=== PATIENT | female | born 1955 | race Caucasian/White ===

== ENCOUNTER 2022-05-07 09:35 | Outpatient (REF) | payer BC, SELFPAY ==
[2022-05-07 09:57] LABS: MANUAL DIFF FLAG NO
[2022-05-07 10:13] LABS: Basophils Percent Auto 0.8 % (0-2); Eosinophils Absolute Auto 0.1 X10*3/uL (0.0-0.4); Eosinophils Percent Auto 2.6 % (0-4); Hematocrit 39.5 % (37.0-47.0); Hemoglobin 13.2 g/dl (12.0-16.0); Imm Gran Abs Auto 0.01 X10*3/uL (0.00-0.03); Imm Gran Pct Auto 0.2 % (0.0-0.4); Lymphocytes Absolute Auto 2.2 X10*3/uL (1.2-4.9); Lymphocytes Percent Auto 43.3 % (20-40); Mean Corpuscular HGB Conc 33.4 g/dl (31.0-35.0); Mean Corpuscular Hemoglobin 32.5 pg (27.0-33.0); Mean Corpuscular Volume 97.3 fL (80.0-98.0); Mean Platelet Volume 10.7 fL (9.4-12.3); Monocytes Absolute Auto 0.4 X10*3/uL (0.1-1.2); Monocytes Percent Auto 8.3 % (2-11); Neutrophils Absolute Auto 2.3 x10*3/uL (2.0-8.3); Neutrophils Percent Auto 44.8 % (45-73); Platelet Count 233 X10*3/uL (160-400); Red Blood Count 4.06 X10*6/uL (4.20-5.50); Red Cell Distribution Width 11.4 % (11.0-16.0)
[2022-05-07 10:54] LABS: Appearance Urine Clear; Color Urine Yellow; Glucose Urine UA Negative (Negative); Leukocyte Esterase Urine Trace (Negative); Nitrite Urine Negative (Negative); UMIC TRIGGER UACC YES; Urine Blood Negative (Negative); Urine Ketones Negative (Negative); Urine Protein Negative (Neg-Trace)
[2022-05-07 11:03] LABS: Bacteria Urine None Seen (None Seen); Hyaline Casts Urine 0-2 /LPF (0-2); RBC Urine 0-2 /HPF (0-2); Squamous Epithelial Cell Urine 0-2 /HPF (0-2); WBC Urine 0-5 /HPF (0-5)
[2022-05-07 12:50] LABS: Alanine Aminotransferase 15 U/L (0-31); Albumin Level 4.3 g/dL (3.5-5.0); Alkaline Phosphatase 70 U/L (39-117); Anion Gap 11 (12-20); Aspartate Amino Transferase 17 U/L (5-31); Bilirubin Total 0.3 mg/dL (0.0-1.0); Blood Urea Nitrogen 16 mg/dL (9-16); Calcium 9.8 mg/dL (8.4-10.2); Carbon Dioxide 29 mmol/L (22-29); Chloride 105 mmol/L (96-108); Cholesterol 189 mg/dL; Estimated Glomerular Filt Rate > 60; Ferritin 41 ng/mL (10-250); Glucose Fasting 101 mg/dL (60-99); HDL Cholesterol 64 mg/dL; Iron 75 mcg/dL (30-160); LDL Cholesterol Calculated 106 mg/dl; Percent Iron Saturation 25 % (15-50); Sodium 140 mmol/L (135-145); TSH reflex Free T4 1.59 uIU/mL (0.32-4.0); Total Iron Binding Capacity 296 mcg/dL (228-428); Total Protein 7.2 g/dL (6.5-8.0); Triglycerides 95 mg/dL; Unsaturated Iron Binding 221 ug/dL; Vitamin D 25-OH Total 67.8 ng/mL (>30)
== END 2022-05-07 09:36 | disposition home or self-care (01) ==
LOC: HO.LAB 09:35
PROVIDERS: PCP Internal Medicine; Visit Provider Internal Medicine
DX: Z00.00 Encounter for general adult medical examination without abnormal findings (principal); D64.9 Anemia, unspecified; E78.00 Pure hypercholesterolemia, unspecified; E55.9 Vitamin D deficiency, unspecified; R30.0 Dysuria
CPT/HCPCS: 36415; 80053; 80061; 81001; 82306; 82728; 83540; 84443; 85025

== ENCOUNTER 2023-05-13 08:57 | Outpatient (AMB) | payer BC, SELFPAY ==
[2023-05-13 09:03] VITALS: BP 130/64; PULSE 67; O2SAT 98; BMI 28.5
--- NOTE | 2023-05-13 09:03 | A.OFFPC_ITS ---
Vital Signs 05/13/23 09:03 Height 5 ft 3 in Weight 161 lb BMI 28.5 BP 130/64 Blood Pressure Location Lt brachial Position Sitting Pulse 67 Pulse Source Pulse Oximeter Pulse Oximetry (%) 98 Oxygen Delivery Method Room Air Intake Visit Reasons: Annual Exam Non Destructive Testing Supervisor Required: No Accompanied by: Self / Same As Patient Allergies No Known Allergies Allergy (Verified 05/13/23 09:15) Medication List - Last Reconciled 05/13/23 by Ant Garza MD cyanocobalamin (vitamin B-12) 1,000 mcg PO DAILY ferrous sulfate 325 mg PO BID multivitamin 1 tab PO DAILY Tobacco use date assessed: 05/13/23 Fall risk assessment: No Falls in past year Last assessed Fall Risk: 05/13/23 Dental Screening Dental Screen Date: 05/13/23 Did you have a dental visit in the last 12 months?: Yes Did you have a dental problem in the last 6 months where you did not have access to dental care?: No Was dental information given to patient?: Patient has dentist HPI Annual Exam HPI Details Patient comes in today for her annual physical examination States that she feels okay but reports experiencing fatigue often lately Has also been craving ice chips for the past few weeks States that she still takes her iron supplements daily She denies any headaches or dizziness Denies any chest pains, no SOB No nausea/vomiting, no abdominal pain No change in bowel habits noted - still has constipation at times due to her iron supplements and takes OTC Sennokot PRN Denies any acute urinary symptoms Was seen again by oncology for follow up last month for her breast cancer (is still on the Compass trial) and was advised that she is doing well with no evidence of recurrence of her cancer Patient had her colonoscopy done (together with EGD) a couple of years ago (2020) and was advised that her next colonoscopy will be in 10 years (2030) Also had her BMD last done in 05/2020 and she is now due for repeat scan She does NOT need a mammogram as she's had bilateral mastectomy done [facility] Medical History Osteopenia Overweight (BMI 25.0-29.9) Elevated blood pressure reading Breast cancer, right breast Surgical History H/O breast implant H/O left mastectomy History of section Family History Other Family history non-contributory Social History (Updated 05/13/23 @ 09:48 by Ant Garza MD) Housing: House Alcohol intake: former Patient Tobacco Use Status: Former Tobacco user Tobacco use type: Cigarette e-Cigarette/Vaping Use: Never Used Second Hand Smoke Exposure: Yes service: No Current occupational status: employed Current occupation: works at [employer]; is also a [employer] Cognitive needs: No Hearing needs: No Vision needs: No Questionnaire PHQ-9 Over the last 2 weeks, how often have you been bothered by any of the following problems? 1. Little interest or pleasure in doing things: not at all 2. Feeling down, depressed, or hopeless: several days 3. Trouble falling or staying asleep, or sleeping too much: not at all 4. Feeling tired or having little energy: not at all 5. Poor appetite or overeating: not at all 6. Feeling bad about yourself - or that you are a failure or have let yourself or your family down: not at all 7. Trouble concentrating on things, such as reading the newspaper or watching television: not at all 8. Moving or speaking so slowly that other people could have noticed. Or the opposite - being so fidgety or restless that you have been moving around a lot more than usual: not at all 9. Thoughts that you would be better off or of hurting yourself in some way: not at all Total score: 1 Depression Screening Interpretation: Positive (mild; discussed measures she can do to help; advised to call if depression gets worse) Depression Screening Follow-up: Existing condition and Declines treatment Depression Screening Done: Yes [id number] - PHQ-9 Billing: Yes Source: Developed by Drs. aDljit Church, Helena Ji, Patel Hudson and colleagues, with an educational shelly from [employer]. Thrive Questionnaire Date Thrive assessed: 05/13/23 I am a: Patient What is your living situation today?: I have a steady place to live Within the past 12 months, did the food you bought not last and you didn't have the money to get more?: Never true Within the past 12 months, did you worry whether your food would run out before you got money to buy more?: Never true Do you have trouble paying for medicines?: No Do you have trouble getting transportation to medical appointments?: No Do you have trouble paying your heating and electricity bill?: No Do you have trouble taking care of your child, family member or friend?: No Do you have trouble with day-to-day activities such as bathing, preparing meals, shopping, managing finances, etc.?: No Are you currently unemployed and looking for a job?: No Are you interested in more education?: No Please select the resources that you would like help with: None Currently or been in a relationship where the following occur: no concerns reported AUDIT C Alcohol Use Questionnaire (AUDIT-C) 1. How often do you have a drink containing alcohol?: Never 3. How often do you have six or more drinks on one occasion?: Never Total Score: 0 Score Reviewed/Action Taken: Yes AGUSTINA-7 AMB Questionnaire AGUSTINA-7 Date AGUSTINA - 7 assessed: 05/13/23 Feeling nervous, anxious, or on edge: 1 = Several days Not being able to stop or control worryin = Not at all Worrying too much about different things: 0 = Not at all Trouble relaxin = Not at all Being so restless that it is hard to sit still: 0 = Not at all Becoming easily annoyed or irritable: 0 = Not at all Feeling afraid as if something awful might happen: 0 = Not at all Total AGUSTINA-7 score (0-4 normal; 5-9 mild; 10-14 moderate; 15-21 severe): 1 Source: Developed by Drs. Daljit Church, Helena Ji, Patel Hudson and colleagues, with an educational shelly from [employer]. Review of Systems Const Denies chills, Reports difficulty sleeping (at times), Reports fatigue (lately), Denies fever(s), Denies headache(s), Denies malaise and Denies weakness Eyes Denies blurry vision, Denies change in vision, Denies irritation and Denies itchy eyes ENT Denies dysphagia, Denies dizziness, Denies otalgia, Denies headache(s), Denies nasal congestion, Denies neck pain, Denies odynophagia and Denies sore throat Card Denies chest pain, Denies rapid heart rate, Denies irregular heart rhythm, Denies palpitations and Denies dyspnea Resp Denies chest congestion, Denies cough, Denies dyspnea and Denies wheezing GI Denies abdominal pain, Denies bloating, Denies change in bowel habits, Reports constipation (due to iron supplements - has to take OTC Senna PRN), Denies dysphagia, Denies heartburn, Denies diarrhea, Denies nausea, Denies odynophagia and Denies vomiting Denies hematuria, Denies urinary frequency, Denies dysuria, Denies urinary incontinence and Denies urinary urgency Musc Denies back pain, Denies arthralgias, Denies joint swelling, Denies muscle weakness and Denies neck pain Skin/Breast Details: S/P bilateral mastectomy Denies lesions and Denies rash Neuro Denies dizziness, Denies headache(s), Denies paresthesias and Denies weakness Psych Denies anxiety and Reports depression (mild) Endo Reports fatigue (lately) and Denies palpitations Waylon/Lymph Denies easy bruising Aller/Immun Denies itchy eyes and Denies wheezing Physical exam (Primary Care) Vital Signs: Last Vital Signs Pulse 67 05/13/23 09:03 BP 130/64 05/13/23 09:03 Pulse Ox 98 05/13/23 09:03 Oxygen Delivery Method Room Air 05/13/23 09:03 BMI result Body Mass Index 28.5 Tobacco/Smoking Status: Tobacco use Status Tobacco use date assessed 05/13/23 05/13/23 09:11 Patient Tobacco Use Status Former Tobacco user 05/13/23 09:11 Tobacco use type Cigarette 05/13/23 09:11 e-Cigarette/Vaping Use Never Used 05/13/23 09:11 PHQ-9: PHQ-9 Score PHQ-9: Total score 1 05/13/23 09:11 Depression Screening Interpretation: Positive (mild; discussed measures she can do to help; advised to call if depression gets worse) Depression Screening Follow-up: Existing condition and Declines treatment Thrive Assessment: Date of Thrive Assessment Date Thrive assessed 05/13/23 05/13/23 09:11 Currently or been in a relationship where the following occur: no concerns reported Const General: no acute distress, alert and awake Orientation/consciousness: patient oriented x3 HENMT Head: Yes normocephalic and Yes atraumatic Ears: external ears normal, TM's normal bilaterally and EAC's normal General nose exam: No nasal discharge present Face and sinus: Yes normal facial exam and Yes sinuses nontender Teeth and gingiva: dentition normal Throat: Yes posterior oropharynx normal and Yes tonsils normal (no TP congestion) Eyes Eyelids: Yes eyelids normal Conjunctivae: conjunctivae normal Pupils: Equal, round and reactive pupils present EOM: EOMs intact bilaterally Neck Neck: Yes no lymphadenopathy and Yes supple Thyroid: Thyroid normal Resp Auscultation: clear to auscultation bilaterally, no rales and no wheezes Cardio Rate: regular rate Rhythm: regular rhythm Heart sounds: no murmurs GI Palpation (GI): Soft to palpation, nontender and No hepatosplenomegaly present Auscultation: normal bowel sounds General: Yes no CVA tenderness Back/Spine/Pelvis Back: no CVA tenderness Thoracic/Lumbar Spine: thoracic and lumbar spine normal to inspection Skin Lesions: no lesions Rashes: no rashes Neuro General: patient oriented x3, moves all extremities, no focal motor deficits and CN's II-XI intact bilaterally Cranial nerves: Yes Equal, round and reactive pupils present Cognition (Neuro): normal cognition Gait exam (Neuro): Normal gait present Extrem General: Yes no clubbing, cyanosis or edema Assessment and Plan Assessment & Plan (1) Annual physical exam: Code(s): Z00.00 - Encounter for general adult medical examination without abnormal findings Plan: Check labs She is up-to-date with all of her cancer screenings (2) Breast cancer, right breast: Comment: Had clinical T2N0, 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, 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-2 Lalitha positive - completed her neoadjuvant chemotherapy consisting of Pertuzumab, Trastuzumab and Paclitaxel (13 weeks total) - part of the COMPASS trial S/P bilateral mastectomy, preventive on the left side Final diagnosis: ypT0 (CR) ypN0 invasive ductal carcinoma Code(s): C50.911 - Malignant neoplasm of unspecified site of right female breast Qualifiers: Breast location: unspecified site of breast Estrogen receptor status: negative Patient sex: female Qualified Code(s): C50.911 - Malignant neoplasm of unspecified site of right female breast; Z17.1 - Estrogen receptor negative status [ER-] Plan: Completed neoadjuvant chemotherapy (including IV PACLitaxel) in July 2021 (is on the Compass trial) S/P bilateral mastectomy (preventive on the left side) and reconstructive plastic surgery to bilateral breast - will be seeing plastic surgery for follow up on her results Follow up with oncology as scheduled for continuing surveillance (3) Osteopenia: Code(s): M85.80 - Other specified disorders of bone density and structure, unspecified site Qualifiers: Osteopenia location: multiple sites Qualified Code(s): M85.89 - Other specified disorders of bone density and structure, multiple sites Plan: BMD last done in May 2020 - (+) osteopenia Reinforced daily Vitamin D and Calcium intake as well as regular exercise and physical activity Will recheck BMD for follow up - is now due for repeat BMD (4) Anemia: Code(s): D64.9 - Anemia, unspecified Qualifiers: Anemia type: unspecified type Qualified Code(s): D64.9 - Anemia, unspecified Plan: Continue Ferrous Sulfate 325 mg BID Will recheck her CBC for follow up Discussed that her recent fatigue may be due to a few possible reasons, with anemia being one of them, especially with her recent craving for ice chips although her iron supplements makes it unlikely We will also be checking her thyroid for further evaluation (5) Overweight (BMI 25.0-29.9): Code(s): E66.3 - Overweight Plan: Reinforced diet/exercise as tolerated/lose weight Plan To return in 1 year for her next annual physical examination Orders: Orders Complete Blood Count Auto Diff Today D64.9 - Anemia, unspecified, Z00.00 - En counter for general adult medical examination without abnormal findings Comprehensive [place]. Panel Fast Today D64.9 - Anemia, unspecified, E78.00 - Pure hypercholesterolemia, unspecified, Z00.00 - Encounter for general adult medical examination without abnormal findings Lipid Panel Today D64.9 - Anemia, unspecified, E78.00 - Pure hypercholestero lemia, unspecified, Z00.00 - Encounter for general adult medical examination without abnormal findings TSH reflex Free T4 Today D64.9 - Anemia, unspecified, E78.00 - Pure hy percholesterolemia, unspecified, Z00.00 - Encounter for general adult medical examination without abnormal findings UA CC w/rflx Micro + Cult Today D64.9 - Anemia, unspecified, R30.0 - Dysuria, Z00.00 - Encounter for general adult medical examination without abnormal findings Vitamin D 25-OH Total Today D64.9 - Anemia, unspecified, E55.9 - Vitamin D deficiency, unspecified, Z00.00 - Encounter for general adult medical examination without abnormal findings XR DEXA axial skeleton Today M85.80 - Other specified disorders of bone density and structure, unspecified site, Z78.0 - Asymptomatic menopausal state Vitamin B12 and Folate Today D64.9 - Anemia, unspecified, E53.8 - Deficiency of other specified B group vitamins, Z00.00 - Encounter for general adult medical examination without abnormal findings IRON PROFILE Today D50.9 - Iron deficiency anemia, unspecified, D64.9 - Anemia, unspecified, Z00.00 - Encounter for general adult medical examination without abnormal findings Coding Level of Care Code Est Pt Prev Care >65y(28912) Diagnoses Annual physical exam Z00.00 Malignant neoplasm of right breast in female, estrogen receptor negative, unspecified site of breast C50.911; Z17.1 Breast location: unspecified site of breast Estrogen receptor status: negative Patient sex: female Osteopenia of multiple sites M85.89 Osteopenia location: multiple sites Anemia, unspecified type D64.9 Anemia type: unspecified type Overweight (BMI 25.0-29.9) E66.3
== END 2023-05-13 09:47 | disposition home or self-care (01) ==
PROVIDERS: Visit Provider Internal Medicine
DX: Z00.00 Encounter for general adult medical examination without abnormal findings (principal); C50.911 Malignant neoplasm of unspecified site of right female breast; Z17.1 Estrogen receptor negative status [ER-]; M85.89 Other specified disorders of bone density and structure, multiple sites; D64.9 Anemia, unspecified; E66.3 Overweight
CPT/HCPCS: 99397

== ENCOUNTER 2023-05-13 09:51 | Outpatient (REF) | payer BC, SELFPAY ==
[2023-05-13 10:06] LABS: MANUAL DIFF FLAG NO
[2023-05-13 10:53] LABS: Basophils Percent Auto 0.6 % (0-2); Eosinophils Absolute Auto 0.1 X10*3/uL (0.0-0.4); Eosinophils Percent Auto 1.8 % (0-4); Hematocrit 38.1 % (37.0-47.0); Hemoglobin 12.7 g/dl (12.0-16.0); Imm Gran Abs Auto 0.01 X10*3/uL (0.00-0.03); Imm Gran Pct Auto 0.2 % (0.0-0.4); Lymphocytes Absolute Auto 1.8 X10*3/uL (1.2-4.9); Lymphocytes Percent Auto 36.1 % (20-40); Mean Corpuscular HGB Conc 33.3 g/dl (31.0-35.0); Mean Corpuscular Hemoglobin 31.9 pg (27.0-33.0); Mean Corpuscular Volume 95.7 fL (80.0-98.0); Mean Platelet Volume 11.4 fL (9.4-12.3); Monocytes Absolute Auto 0.4 X10*3/uL (0.1-1.2); Monocytes Percent Auto 7.3 % (2-11); Neutrophils Absolute Auto 2.7 x10*3/uL (2.0-8.3); Platelet Count 202 X10*3/uL (160-400); Red Blood Count 3.98 X10*6/uL (4.20-5.50); Red Cell Distribution Width 11.6 % (11.0-16.0)
[2023-05-13 11:19] LABS: Appearance Urine Clear; Color Urine Yellow; Glucose Urine UA Negative (Negative); Leukocyte Esterase Urine Trace (Negative); Nitrite Urine Negative (Negative); UMIC TRIGGER UACC YES; Urine Blood Negative (Negative); Urine Ketones Negative (Negative); Urine Protein Negative (Neg-Trace)
[2023-05-13 11:23] LABS: Bacteria Urine None Seen (None Seen); Hyaline Casts Urine 0-2 /LPF (0-2); RBC Urine 0-2 /HPF (0-2); Squamous Epithelial Cell Urine 0-2 /HPF (0-2); WBC Urine 0-5 /HPF (0-5)
[2023-05-13 11:30] LABS: Alanine Aminotransferase 27 U/L (0-31); Albumin Level 4.2 g/dL (3.5-5.0); Alkaline Phosphatase 77 U/L (39-117); Anion Gap 12 (12-20); Aspartate Amino Transferase 19 U/L (5-31); Bilirubin Total 0.4 mg/dL (0.0-1.0); Blood Urea Nitrogen 11 mg/dL (9-16); Calcium 9.3 mg/dL (8.4-10.2); Carbon Dioxide 27 mmol/L (22-29); Chloride 107 mmol/L (96-108); Cholesterol 176 mg/dL (<200); Estimated Glomerular Filt Rate > 60; Glucose Fasting 97 mg/dL (60-99); HDL Cholesterol 61 mg/dL (>40); Iron 187 mcg/dL (30-160); LDL Cholesterol Calculated 100 mg/dL (<100); Percent Iron Saturation 72 % (15-50); Sodium 142 mmol/L (135-145); Total Iron Binding Capacity 258 mcg/dL (228-428); Total Protein 7.3 g/dL (6.5-8.0); Triglycerides 79 mg/dL (<150); Unsaturated Iron Binding 71 ug/dL
[2023-05-13 11:34] LABS: TSH reflex Free T4 1.66 uIU/mL (0.32-4.0); Vitamin D 25-OH Total 51.2 ng/mL (>30)
[2023-05-13 11:45] LABS: Folate 17.9 ng/mL (> or = 4.0); Vitamin B12 1366 pg/mL (200-900)
== END 2023-05-13 09:52 | disposition home or self-care (01) ==
LOC: HO.LAB 09:51
PROVIDERS: PCP Internal Medicine; Visit Provider Internal Medicine
DX: Z00.00 Encounter for general adult medical examination without abnormal findings (principal); E78.00 Pure hypercholesterolemia, unspecified; E55.9 Vitamin D deficiency, unspecified; E53.8 Deficiency of other specified B group vitamins; D50.9 Iron deficiency anemia, unspecified
CPT/HCPCS: 36415; 80053; 80061; 81001; 82306; 82607; 82746; 83540; 84443; 85025

== ENCOUNTER 2023-06-08 14:08 | Outpatient (REF) | payer BC, SELFPAY ==
--- NOTE | ~2023-06-08 | MM_ITS ---
EXAMINATION: BONE DENSITOMETRY CLINICAL INDICATION: Asymptomatic menopausal state. COMPARISON: This is the patient's baseline examination. TECHNIQUE: Using a [employer] DXA System (software version: 13.1) manufactured by [employer], dual-energy x-ray absorptiometry was performed of the lumbar spine and left hip. The images are of good technical quality. Summary results are attached. FINDINGS: LEFT FEMUR, NECK: BMD 0.723 g/cm2, Z-score -1.0, T-score -2.3, osteopenia. LEFT FEMUR, TOTAL: BMD 0.746 g/cm2, Z-score -1.1, T-score -2.1, osteopenia. AP SPINE L1-L4: BMD 0.858 g/cm2, Z-score -1.4, T-score -2.7, osteoporosis. IDENTIFIED RISK FACTORS: Early menopause, secondary osteoporosis, height loss, history of fracture (adult). HISTORY OF FRACTURE: Wrist. MEDICATIONS: Calcium supplements or multivitamin, vitamin D. MM/XR DEXA axial skeleton IMPRESSION: 1. DIAGNOSIS: Severe osteoporosis based on the lowest T-score value of -2.7 in the lumbar spine and history of fracture applying World Health Organization criteria. 2. 10-YEAR FRACTURE RISK PREDICTION, FRAX: According to the guidelines, FRAX calculation should only be performed on patients in the osteopenia bone density category. Therefore, FRAX was not performed on this patient. 3. Treatment Recommendations: NOF guidelines recommend consideration for treatment in postmenopausal women and men age 50 and older presenting with the following: -A hip or vertebral (clinical or morphometric) fracture. -T-score less than or equal to -2.5 at the femoral neck or spine after appropriate evaluation to exclude secondary causes. -Low bone mass at the hip or spine and a 10-year fracture probability by FRAX of greater than or equal to 3% for hip fracture or greater than or equal to 20% for major osteoporotic fracture based on the [place] adapted WHO algorithm. 4. Other Recommendations: All treatment decisions require clinical judgment and consideration of individual patient factors, including patient preferences, comorbidities, previous drug use, risk factors not captured in the FRAX model (e.g. frailty, falls, vitamin D deficiency, increased bone turnover, interval significant decline in bone density) and possible under or overestimation of fracture risk by FRAX. Additional medical evaluation for secondary cause of low bone mineral density may be appropriate. FUTURE SCAN RECOMMENDATION: People with diagnosed cases of osteoporosis or at high risk for fracture should have regular bone mineral density tests. For patients eligible for Medicare, routine testing is allowed once every 2 years. The testing frequency can be increased to one year for patients who have rapidly progressing disease, those who are receiving or discontinuing medical therapy to restore bone mass, or have additional risk factors.
== END 2023-06-08 14:09 | disposition home or self-care (01) ==
LOC: HO.MAMMO 14:08
PROVIDERS: PCP Internal Medicine; Visit Provider Internal Medicine
DX: Z13.820 Encounter for screening for osteoporosis (principal); Z78.0 Asymptomatic menopausal state; M85.80 Other specified disorders of bone density and structure, unspecified site
CPT/HCPCS: 77080

== ENCOUNTER 2024-05-16 08:57 | Outpatient (AMB) | payer BC, SELFPAY ==
[2024-05-16 09:10] VITALS: BP 116/74; BMI 27.3
--- NOTE | 2024-05-16 09:10 | MHC.PC.OV ---
Vital Signs 05/16/24 09:10 Height 5 ft 3 in Weight 154 lb 4 oz BMI 27.3 BP 116/74 Blood Pressure Location Lt brachial Position Sitting Pulse Source Pulse Oximeter Oxygen Delivery Method Room Air Intake Visit Reasons: pe Admissions Nurse Required: No Accompanied by: Self / Same As Patient Allergies No Known Allergies Allergy (Verified 05/16/24 09:46) Medication List - Last Reconciled 05/16/24 by Ant Garza MD cyanocobalamin (vitamin B-12) 1,000 mcg PO DAILY ferrous sulfate 325 mg PO BID multivitamin 1 tab PO DAILY Tobacco use date assessed: 05/16/24 Fall risk assessment: No Falls in past year Last assessed Fall Risk: 05/16/24 Dental Screening Dental Screen Date: 05/16/24 Did you have a dental visit in the last 12 months?: Yes Did you have a dental problem in the last 6 months where you did not have access to dental care?: No Was dental information given to patient?: Patient has dentist HPI pe HPI Details Patient comes in today for her annual physical examination States that she feels okay She denies any headaches or dizziness Denies any chest pains, no SOB No nausea/vomiting, no abdominal pain No change in bowel habits noted - still has constipation at times due to her iron supplements and she takes OTC Sennokot PRN to help relieve her symptoms She denies any acute urinary symptoms She had her screening colonoscopy done back in [address] Vanegas, which came out normal, and she was advised that her next colonoscopy will be due in 10 years (2030) She has had bilateral mastectomy done so she no longer needs to have annual mammographies She had her annual gynecology exam and pap smear last done in April 2022 and states that she will reach out to her photogrammetric tech to schedule her next appointment MEGAN She had her baseline bone density done back in May 2023 and would like to know how she did on her scan [facility] Medical History (Updated 05/16/24 @ 10:03 by Ant Garza MD) Osteoporosis Overweight (BMI 25.0-29.9) Elevated blood pressure reading Breast cancer, right breast Surgical History (Updated 05/16/24 @ 10:06 by Ant Garza MD) History of colonoscopy History of bilateral mastectomy H/O breast implant History of section Family History Other Family history non-contributory Social History Housing: House Alcohol intake: former Patient Tobacco Use Status: Former Tobacco user Tobacco use type: Cigarette e-Cigarette/Vaping Use: Never Used Second Hand Smoke Exposure: Yes service: No Current occupational status: employed 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 1. Little interest or pleasure in doing things: not at all 2. Feeling down, depressed, or hopeless: not at all 3. Trouble falling or staying asleep, or sleeping too much: not at all 4. Feeling tired or having little energy: not at all 5. Poor appetite or overeating: not at all 6. Feeling bad about yourself - or that you are a failure or have let yourself or your family down: not at all 7. Trouble concentrating on things, such as reading the newspaper or watching television: not at all 8. Moving or speaking so slowly that other people could have noticed. Or the opposite - being so fidgety or restless that you have been moving around a lot more than usual: not at all 9. Thoughts that you would be better off or of hurting yourself in some way: not at all Total score: 0 Depression Screening Interpretation: Negative Depression Screening Done: Yes 55551 - PHQ-9 Billing: Yes Source: Developed by Drs. Daljit Church, Helena Ji, Patel Hudson and colleagues, with an educational shelly from [employer]. Thrive Questionnaire Date Thrive assessed: 05/16/24 I am a: Patient What is your living situation today?: I have a steady place to live Within the past 12 months, did the food you bought not last and you didn't have the money to get more?: Never true Within the past 12 months, did you worry whether your food would run out before you got money to buy more?: Never true Do you have trouble paying for medicines?: No Do you have trouble getting transportation to medical appointments?: No Do you have trouble paying your heating and electricity bill?: No Do you have trouble taking care of your child, family member or friend?: No Do you have trouble with day-to-day activities such as bathing, preparing meals, shopping, managing finances, etc.?: No Are you currently unemployed and looking for a job?: No Are you interested in more education?: No Please select the resources that you would like help with: None Currently or been in a relationship where the following occur: No concerns reported THRIVE Score: 0 AUDIT C Alcohol Use Questionnaire (AUDIT-C) 1. How often do you have a drink containing alcohol?: Never 3. How often do you have six or more drinks on one occasion?: Never Total Score: 0 Score Reviewed/Action Taken: Yes AGUSTINA-7 AMB Questionnaire AGUSTINA-7 Date AGUSTINA - 7 assessed: 05/16/24 Feeling nervous, anxious, or on edge: 0 = Not at all Not being able to stop or control worryin = Not at all Worrying too much about different things: 0 = Not at all Trouble relaxin = Not at all Being so restless that it is hard to sit still: 0 = Not at all Becoming easily annoyed or irritable: 0 = Not at all Feeling afraid as if something awful might happen: 0 = Not at all Total AGUSTINA-7 score (0-4 normal; 5-9 mild; 10-14 moderate; 15-21 severe): 0 Source: Developed by Drs. Daljit Church, Helena Ji, Patel Hudson and colleagues, with an educational shelly from [employer]. Review of Systems Const Denies chills, Denies fatigue, Denies fever(s), Denies headache(s) and Denies malaise Eyes Denies blurry vision, Denies change in vision, Denies irritation and Denies itchy eyes ENT Denies dysphagia, Denies dizziness, Denies otalgia, Denies headache(s), Denies nasal congestion, Denies neck pain, Denies odynophagia, Denies sinus pain and Denies sore throat Card Denies chest pain, Denies rapid heart rate, Denies irregular heart rhythm, Denies palpitations and Denies dyspnea Resp Denies chest congestion, Denies cough, Denies dyspnea and Denies wheezing GI Denies abdominal pain, Denies bloating, Denies constipation, Denies dysphagia, Denies heartburn, Denies diarrhea, Denies nausea, Denies odynophagia and Denies vomiting Denies hematuria, Denies urinary frequency, Denies dysuria, Denies urinary incontinence and Denies urinary urgency Musc Denies back pain, Denies arthralgias, Denies joint swelling, Denies muscle weakness and Denies neck pain Skin/Breast Denies breast pain, Denies breast mass, Denies change in pigmentation, Denies lesions, Denies rash and Denies unusual bruising Neuro Denies dizziness, Denies headache(s) and Denies paresthesias Psych Denies anxiety and Denies depression Endo Denies fatigue and Denies palpitations [place]/Lymph Denies easy bruising Aller/Immun Denies itchy eyes and Denies wheezing Physical exam (Primary Care) Vital Signs: Last Vital Signs BP 116/74 05/16/24 09:10 Oxygen Delivery Method Room Air 05/16/24 09:10 BMI result Body Mass Index 27.3 Tobacco/Smoking Status: Tobacco use Status Tobacco use date assessed 05/16/24 05/16/24 09:16 Patient Tobacco Use Status Former Tobacco user 05/16/24 09:16 Tobacco use type Cigarette 05/16/24 09:16 e-Cigarette/Vaping Use Never Used 05/16/24 09:16 PHQ-9: PHQ-9 Score PHQ-9: Total score 0 05/16/24 15:28 Depression Screening Interpretation: Negative Thrive Assessment: Date of Thrive Assessment Date Thrive assessed 05/16/24 05/16/24 09:16 Currently or been in a relationship where the following occur: No concerns reported Const General: no acute distress, alert and awake Orientation/consciousness: patient oriented x3 HENMT Head: Yes normocephalic and Yes atraumatic Ears: external ears normal, TM's normal bilaterally and EAC's normal General nose exam: No nasal discharge present Face and sinus: Yes normal facial exam and Yes sinuses nontender Teeth and gingiva: dentition normal Throat: Yes posterior oropharynx normal and Yes tonsils normal (no TP congestion) Eyes Eyelids: Yes eyelids normal Conjunctivae: conjunctivae normal Pupils: Equal, round and reactive pupils present EOM: EOMs intact bilaterally Neck Neck: Yes supple and No lymphadenopathy Thyroid: Thyroid normal Resp Auscultation: clear to auscultation bilaterally, no rales and no wheezes Cardio Rate: regular rate Rhythm: regular rhythm Heart sounds: no murmurs GI Palpation (GI): Soft to palpation, nontender and No hepatosplenomegaly present Auscultation: normal bowel sounds General: Yes no CVA tenderness Back/Spine/Pelvis Back: no CVA tenderness Thoracic/Lumbar Spine: thoracic and lumbar spine normal to inspection Skin Lesions: no lesions Rashes: no rashes Neuro General: patient oriented x3, moves all extremities, no focal motor deficits and CN's II-XI intact bilaterally Cranial nerves: Yes Equal, round and reactive pupils present Cognition (Neuro): normal cognition Gait exam (Neuro): Normal gait present Extrem General: Yes no clubbing, cyanosis or edema Coding Level of Care Code Est Pt Prev Care >65y(69936) Diagnoses Annual physical exam Z00.00 Osteoporosis without current pathological fracture, unspecified osteoporosis type M81.0 Osteoporosis type: unspecified Presence of current pathological fracture: without current pathological fracture Malignant neoplasm of right breast in female, estrogen receptor negative, unspecified site of breast C50.911; Z17.1 Breast location: unspecified site of breast Estrogen receptor status: negative Patient sex: female Anemia, unspecified type D64.9 Anemia type: unspecified type Overweight (BMI 25.0-29.9) E66.3 Additional Codes PHQ-9 - 50919 - PHQ-9 Billing: Yes ([id number]) Assessment & Plan Assessment & Plan (1) Annual physical exam: Code(s): Z00.00 - Encounter for general adult medical examination without abnormal findings Category: Medical Plan: Check labs She is up-to-date with her cancer screenings except for her annual gynecology exam and pap smear - she goes to her photogrammetric tech at [facility] and will reach out to them to schedule her appointment MEGAN She no longer has to go for annual mamography as she's had bilateral mastectomy done She is not due for repeat colonoscopy until 2030 She had her BMD done back in May 2023 (2) Osteoporosis: Code(s): M81.0 - Age-related osteoporosis without current pathological fracture Category: Medical Qualifiers: Osteoporosis type: unspecified Presence of current pathological fracture: without current pathological fracture Qualified Code(s): M81.0 - Age-related osteoporosis without current pathological fracture Plan: Her baseline BMD done in May 2023 revealed severe osteoporosis based on the lowest T-score value of -2.7 in the lumbar spine and history of fracture applying World Health Organization criteria Will check her urine NTx for further evaluation After discussion with patient, will go ahead and start her on Alendronate 70 mg Q week as instructed She is also advised to start taking OTC Calcium of at least 1000 mg daily and Vitamin D3 2000 units QD Will continue to monitor her BMD every couple of years to track her progress (3) Breast cancer, right breast: Comment: Had clinical T2N0, 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, 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-2 Lalitha positive - completed her neoadjuvant chemotherapy consisting of Pertuzumab, Trastuzumab and Paclitaxel (13 weeks total) - part of the COMPASS trial S/P bilateral mastectomy, preventive on the left side Final diagnosis: ypT0 (CR) ypN0 invasive ductal carcinoma Code(s): C50.911 - Malignant neoplasm of unspecified site of right female breast Category: Medical Qualifiers: Breast location: unspecified site of breast Estrogen receptor status: negative Patient sex: female Qualified Code(s): C50.911 - Malignant neoplasm of unspecified site of right female breast; Z17.1 - Estrogen receptor negative status [ER-] Plan: Patient completed neoadjuvant chemotherapy (including IV PACLitaxel) in July 2021 (is on the Compass trial) S/P bilateral mastectomy (preventive on the left side) and reconstructive plastic surgery to bilateral breast Follow up with oncology as scheduled for continuing surveillance (4) Anemia: Code(s): D64.9 - Anemia, unspecified Category: Medical Qualifiers: Anemia type: unspecified type Qualified Code(s): D64.9 - Anemia, unspecified Plan: Continue Ferrous sulfate 325 mg BID Will recheck her CBC for follow up and continue to monitor her CBC regularly (5) Overweight (BMI 25.0-29.9): Code(s): E66.3 - Overweight Category: Medical Plan: Reinforced diet/exercise as tolerated/lose weight Plan Follow up in 6 months Orders: Orders Complete Blood Count Auto Diff 05/16/24 D64.9 - Anemia, unspecified, Z00.00 - Encounter for general adult medical examination without abnormal findings Vitamin B12 and Folate 05/16/24 E53.8 - Deficiency of other specified B group vitamins, Z00.00 - Encounter for general adult medical examination without abnormal findings Vitamin D 25-OH Total 05/16/24 E55.9 - Vitamin D deficiency, unspecified, Z00.00 - Encounter for general adult medical examination without abnormal findings Comprehensive [place]. Panel Fast 05/16/24 E78.00 - Pure hypercholesterolemia, unspecified, Z00.00 - Encounter for general adult medical examination without abnormal findings Lipid Panel 05/16/24 E78.00 - Pure hypercholesterolemia, unspecified, Z00.00 - Encounter for general adult medical examination without abnormal findings TSH reflex Free T4 05/16/24 E78.00 - Pure hypercholesterolemia, unspecified, Z00.00 - Encounter for general adult medical examination without abnormal findings UA CC w/rflx Micro + Cult 05/16/24 R30.0 - Dysuria, Z00.00 - Encounter for general adult medical examination without abnormal findings Collagen Crosslinks NTX 05/16/24 M81.0 - Age-related osteoporosis without current pathological fracture Medications: New alendronate To be taken first thing in the morning on an empty stomach with a full glass of water; patient has to stay upright for at least the next 30 minutes and should not eat or drink anything else for 30 to 60 minutes after taking the medication 70 mg PO QWEEK 3 months 13 tabs 1RF
== END 2024-05-16 09:59 | disposition home or self-care (01) ==
PROVIDERS: PCP Internal Medicine; Visit Provider Internal Medicine
DX: Z00.00 Encounter for general adult medical examination without abnormal findings (principal); M81.0 Age-related osteoporosis without current pathological fracture; C50.911 Malignant neoplasm of unspecified site of right female breast; Z17.1 Estrogen receptor negative status [ER-]; D64.9 Anemia, unspecified; E66.3 Overweight

== ENCOUNTER 2024-05-16 08:57 | Outpatient (REF) | payer BC, SELFPAY ==
[2024-05-16 10:24] LABS: MANUAL DIFF FLAG NO
[2024-05-16 10:51] LABS: Basophils Absolute Auto 0.1 X10*3/uL (0.0-0.2); Basophils Percent Auto 0.9 % (0-2); Eosinophils Absolute Auto 0.3 X10*3/uL (0.0-0.4); Eosinophils Percent Auto 5.9 % (0-4); Hematocrit 30.5 % (37.0-47.0); Hemoglobin 9.4 g/dl (12.0-16.0); Imm Gran Abs Auto 0.01 X10*3/uL (0.00-0.03); Imm Gran Pct Auto 0.2 % (0.0-0.4); Lymphocytes Absolute Auto 1.9 X10*3/uL (1.2-4.9); Lymphocytes Percent Auto 34.2 % (20-40); Mean Corpuscular HGB Conc 30.8 g/dl (31.0-35.0); Mean Corpuscular Hemoglobin 26.8 pg (27.0-33.0); Mean Corpuscular Volume 86.9 fL (80.0-98.0); Monocytes Absolute Auto 0.6 X10*3/uL (0.1-1.2); Monocytes Percent Auto 9.8 % (2-11); Neutrophils Absolute Auto 2.7 x10*3/uL (2.0-8.3); Platelet Count 283 X10*3/uL (160-400); Red Blood Count 3.51 X10*6/uL (4.20-5.50); Red Cell Distribution Width 13.3 % (11.0-16.0); White Blood Count 5.6 X10*3/uL (4.8-10.8)
[2024-05-16 11:03] LABS: Appearance Urine Cloudy; Color Urine Yellow; Glucose Urine UA Negative (Negative); Leukocyte Esterase Urine Trace (Negative); Nitrite Urine Negative (Negative); Specific Gravity - Urine >= 1.030 (1.005-1.025); UMIC TRIGGER UACC YES; Urine Blood Negative (Negative); Urine Ketones Trace mg/dL (Negative); Urine Protein Negative (Neg-Trace)
[2024-05-16 11:28] LABS: Alanine Aminotransferase 22 U/L (0-31); Alkaline Phosphatase 59 U/L (39-117); Anion Gap 10 (12-20); Aspartate Amino Transferase 25 U/L (5-31); Bilirubin Total 0.2 mg/dL (0.0-1.0); Blood Urea Nitrogen 14 mg/dL (9-16); Calcium 8.8 mg/dL (8.4-10.2); Carbon Dioxide 29 mmol/L (22-29); Chloride 108 mmol/L (96-108); Cholesterol 155 mg/dL (<200); Estimated Glomerular Filt Rate > 60; Glucose Fasting 101 mg/dL (60-99); HDL Cholesterol 65 mg/dL (>40); LDL Cholesterol Calculated 71 mg/dL (<100); Potassium 4.7 mmol/L (3.3-5.1); Sodium 142 mmol/L (135-145); Total Protein 7.3 g/dL (6.5-8.0); Triglycerides 97 mg/dL (<150)
[2024-05-16 11:48] LABS: TSH reflex Free T4 1.78 uIU/mL (0.32-4.0); Vitamin D 25-OH Total 61.1 ng/mL (>30)
[2024-05-16 12:03] LABS: Folate > 20.0 ng/mL (> or = 4.0); Vitamin B12 1690 pg/mL (200-900)
[2024-05-16 12:42] LABS: Bacteria Urine 1+ (None Seen); Hyaline Casts Urine 0-2 /LPF (0-2); RBC Urine 0-2 /HPF (0-2); WBC Urine 0-5 /HPF (0-5)
[2024-05-27 13:43] LABS: N-Telopeptide 55 (see note); NTXCreaRU 172 mg/dL (20-275)
== END 2024-05-16 08:58 | disposition home or self-care (01) ==
LOC: HO.LAB 08:57
PROVIDERS: PCP Internal Medicine; Visit Provider Internal Medicine
DX: Z00.00 Encounter for general adult medical examination without abnormal findings (principal); M81.0 Age-related osteoporosis without current pathological fracture; C50.911 Malignant neoplasm of unspecified site of right female breast; Z17.1 Estrogen receptor negative status [ER-]; D64.9 Anemia, unspecified; E66.3 Overweight; Z68.27 Body mass index [BMI] 27.0-27.9, adult; Z79.899 Other long term (current) drug therapy; Z90.13 Acquired absence of bilateral breasts and nipples; E53.8 Deficiency of other specified B group vitamins; E55.9 Vitamin D deficiency, unspecified; E78.00 Pure hypercholesterolemia, unspecified
CPT/HCPCS: 36415; 80053; 80061; 81001; 81003; 82306; 82523; 82607; 82746; 84443; 85025; 96127

== ENCOUNTER 2025-01-31 08:25 | Outpatient (REF) | payer BC, SELFPAY ==
[2025-01-31 09:22] LABS: MANUAL DIFF FLAG NO
[2025-01-31 10:27] LABS: Hematocrit 24.7 % (37.0-47.0); Imm Gran Abs Auto 0.01 X10*3/uL (0.00-0.03); Imm Gran Pct Auto 0.2 % (0.0-0.4); Lymphocytes Absolute Auto 1.5 X10*3/uL (1.2-4.9); Mean Corpuscular HGB Conc 27.1 g/dl (31.0-35.0); Mean Corpuscular Hemoglobin 20.6 pg (27.0-33.0); Mean Corpuscular Volume 75.8 fL (80.0-98.0); NRBC Abs Auto 0.000 X10*3/uL (0.0-0.012); NRBC Pct Auto 0.0 /100WBC (0.0-0.2); Platelet Count 276 X10*3/uL (160-400); Red Blood Count 3.26 X10*6/uL (4.20-5.50); White Blood Count 4.9 X10*3/uL (4.8-10.8)
[2025-01-31 10:36] LABS: Hemoglobin 6.7 g/dl (12.0-16.0)
[2025-01-31 11:14] LABS: Alanine Aminotransferase 20 U/L (0-31); Albumin Level 4.4 g/dL (3.5-5.0); Alkaline Phosphatase 45 U/L (39-117); Anion Gap 14 (12-20); Aspartate Amino Transferase 25 U/L (5-31); Blood Urea Nitrogen 15 mg/dL (9-16); Calcium 9.1 mg/dL (8.4-10.2); Carbon Dioxide 26 mmol/L (22-29); Chloride 109 mmol/L (96-108); Cholesterol 155 mg/dL (<200); Estimated Glomerular Filt Rate > 60; HDL Cholesterol 54 mg/dL (>40); Iron 87 mcg/dL (30-160); Percent Iron Saturation 23 % (15-50); Potassium 4.4 mmol/L (3.3-5.1); Sodium 145 mmol/L (135-145); Total Iron Binding Capacity 384 mcg/dL (228-428); Total Protein 7.2 g/dL (6.5-8.0); Triglycerides 96 mg/dL (<150); Unsaturated Iron Binding 297 ug/dL
[2025-01-31 11:35] LABS: Folate > 20.0 ng/mL (> or = 4.0); Vitamin B12 552 pg/mL (200-900)
[2025-01-31 11:37] LABS: Appearance Urine Clear; Glucose Urine UA Negative (Negative); PH 6.0 (5.0-9.0); Specific Gravity - Urine <= 1.005 (1.005-1.025)
== END 2025-01-31 08:26 | disposition home or self-care (01) ==
LOC: HO.LAB 08:25
PROVIDERS: PCP Internal Medicine
DX: M81.0 Age-related osteoporosis without current pathological fracture (principal); D64.9 Anemia, unspecified; R53.83 Other fatigue; E66.3 Overweight; Z68.27 Body mass index [BMI] 27.0-27.9, adult
CPT/HCPCS: 36415; 80053; 80061; 81003; 82306; 82607; 82746; 83540; 84443; 85025; 85652; 86141; 96127

== ENCOUNTER 2025-01-31 08:25 | Outpatient (AMB) | payer BC, SELFPAY ==
[2025-01-31 08:35] VITALS: BP 144/50; PULSE 70; RESP 18; TEMP 35.8; O2SAT 95; BMI 27.0
--- NOTE | 2025-01-31 08:35 | MHC.PC.OV ---
Vital Signs 01/31/25 08:35 Height 5 ft 3 in Weight 152 lb 4 oz BMI 27.0 BP 144/50 H Blood Pressure Location Lt brachial Position Sitting Respiration 18 Pulse 70 Pulse Source Pulse Oximeter Temp 96.4 F L Temp Source Temporal Artery Scan Pulse Oximetry (%) 95 Oxygen Delivery Method Room Air Intake Visit Reasons: osteoporosis Night Guard Required: No Accompanied by: Self / Same As Patient Allergies No Known Allergies Allergy (Verified 01/31/25 08:43) Medication List - Last Reconciled 01/31/25 by LEXIS Martin alendronate 70 mg PO QWEEK 3 months cyanocobalamin (vitamin B-12) 1,000 mcg PO DAILY ferrous sulfate 325 mg PO BID multivitamin 1 tab PO DAILY Tobacco use date assessed: 01/31/25 Fall risk assessment: No Falls in past year Last assessed Fall Risk: 01/31/25 Dental Screening Dental Screen Date: 01/31/25 Did you have a dental visit in the last 12 months?: Yes Did you have a dental problem in the last 6 months where you did not have access to dental care?: No Was dental information given to patient?: Patient has dentist HPI osteoporosis HPI Details The patient is a 69 year old female past medical history of anemia, osteoporosis, right breast cancer status post bilateral mastectomy, elevated blood pressure Presenting with a follow-up for osteoporosis management and evaluation of anemia. Osteoporosis was diagnosed following a bone density test conducted at the beginning of the year or end of last year, with the patient being informed of the diagnosis during a follow-up appointment. The patient was prescribed alendronate, which she takes weekly with a full glass of water, and reports no adverse effects such as nausea. She has a history of wrist fractures 25 years ago, which took a long time to heal, per patient.BMD test. The patient wants to if there is any other treatment options available or if this is the only plan going forward. Explained to the patient that we won't know the result until reevaluation in about two years with The patient also reports feeling tired frequently, which she associates with low blood count levels identified in previous blood work. She is currently taking iron supplements, but experiences constipation as a side effect, for which she uses Senokot. Despite these interventions, she reports no improvement in energy levels. 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 1. Little interest or pleasure in doing things: not at all 2. Feeling down, depressed, or hopeless: not at all 3. Trouble falling or staying asleep, or sleeping too much: several days 4. Feeling tired or having little energy: more than half the days 5. Poor appetite or overeating: not at all 6. Feeling bad about yourself - or that you are a failure or have let yourself or your family down: not at all 7. Trouble concentrating on things, such as reading the newspaper or watching television: not at all 8. Moving or speaking so slowly that other people could have noticed. Or the opposite - being so fidgety or restless that you have been moving around a lot more than usual: not at all 9. Thoughts that you would be better off or of hurting yourself in some way: not at all Total score: 3 Depression Screening Interpretation: Negative Depression Screening Done: Yes 64100 - PHQ-9 Billing: Yes Source: Developed by Drs. Daljit Church, Helena Ji, Patel Hudson and colleagues, with an educational shelly from [employer] Thrive Questionnaire Date Thrive assessed: 01/31/25 I am a: Patient What is your living situation today?: I have a steady place to live Within the past 12 months, did the food you bought not last and you didn't have the money to get more?: Never true Within the past 12 months, did you worry whether your food would run out before you got money to buy more?: Never true Do you have trouble paying for medicines?: No Do you have trouble getting transportation to medical appointments?: No Do you have trouble paying your heating and electricity bill?: No Do you have trouble taking care of your child, family member or friend?: No Do you have trouble with day-to-day activities such as bathing, preparing meals, shopping, managing finances, etc.?: No Are you currently unemployed and looking for a job?: No Are you interested in more education?: No Please select the resources that you would like help with: None Currently or been in a relationship where the following occur: No concerns reported THRIVE Score: 0 AUDIT C Alcohol Use Questionnaire (AUDIT-C) 1. How often do you have a drink containing alcohol?: Never Total Score: 0 AGUSTINA-7 AMB Questionnaire AGUSTINA-7 Date AGUSTINA - 7 assessed: 01/31/25 Feeling nervous, anxious, or on edge: 0 = Not at all Not being able to stop or control worryin = Several days Worrying too much about different things: 1 = Several days Trouble relaxin = Several days Being so restless that it is hard to sit still: 0 = Not at all Becoming easily annoyed or irritable: 1 = Several days Feeling afraid as if something awful might happen: 0 = Not at all Total AGUSTINA-7 score (0-4 normal; 5-9 mild; 10-14 moderate; 15-21 severe): 4 Source: Developed by Drs. Daljit Church, Helena Ji, Patel Hudson and colleagues, with an educational shelly from [employer] Review of Systems Const Denies body aches, Denies chills, Reports fatigue, Denies fever(s), Denies headache(s), Reports lethargy and Denies poor appetite Eyes Reports no additional complaints ENT Denies dysphagia, Denies dizziness, Denies headache(s) and Denies odynophagia Card Denies chest pain, Denies syncope, Denies edema, Denies irregular heart rhythm, Denies lightheadedness and Denies dyspnea Resp Denies cough and Denies dyspnea GI Denies abdominal pain, Reports constipation (better with treatment), Denies dysphagia, Denies diarrhea, Denies nausea, Denies odynophagia and Denies vomiting Reports no additional complaints Musc Reports no additional complaints and Denies abnormal gait Skin/Breast Reports system reviewed and no additional complaints, except as documented Neuro Denies abnormal gait, Denies dizziness, Denies syncope and Denies headache(s) Psych Reports no additional complaints Endo Reports fatigue Physical exam (Primary Care) Vital Signs: Last Vital Signs Temp 96.4 F L 01/31/25 08:35 Resp 18 01/31/25 08:35 Oxygen Delivery Method Room Air 01/31/25 08:35 BMI result Body Mass Index 27.0 Tobacco/Smoking Status: Tobacco use Status Tobacco use date assessed 05/16/24 05/16/24 09:16 Patient Tobacco Use Status Former Tobacco user 05/16/24 09:16 Tobacco use type Cigarette 05/16/24 09:16 e-Cigarette/Vaping Use Never Used 05/16/24 09:16 Depression Screening Interpretation: Negative Thrive Assessment: Date of Thrive Assessment Date Thrive assessed 05/16/24 05/16/24 09:16 Currently or been in a relationship where the following occur: No concerns reported Const General: cooperative, healthy appearing, comfortable and no acute distress Orientation/consciousness: patient oriented x3 HENMT Head: Yes normocephalic Ears: hearing grossly normal bilaterally General nose exam: Normal external nose present Eyes General: appearance normal, both eyes and all related structures Conjunctivae: conjunctivae normal Neck Neck: Yes full ROM and Yes no lymphadenopathy Resp Effort & Inspection: normal respiratory effort Auscultation: clear to auscultation bilaterally, no crackles, no rales, no rhonchi and no wheezes Cardio Rate: regular rate Rhythm: regular rhythm Skin General skin exam: no rashes or lesions noted Neuro General: patient oriented x3 Gait exam (Neuro): Normal gait present Extrem General: Yes normal to inspection, Yes full ROM and No edema Psych Affect: normal affect Attitude: cooperative Insight: Good insight present (Psych) Judgement: Good judgement present (Psych) Coding Level of Care Code Est Pt Level 3 (38076) Diagnoses Anemia, unspecified type D64.9 Anemia type: unspecified type Osteoporosis without current pathological fracture, unspecified osteoporosis type M81.0 Osteoporosis type: unspecified Presence of current pathological fracture: without current pathological fracture Fatigue, unspecified type R53.83 Fatigue type: unspecified Additional Codes PHQ-9 - 20037 - PHQ-9 Billing: Yes ([id number]) Time Spent (min) 35 Assessment & Plan Assessment & Plan (1) Anemia: Code(s): D64.9 - Anemia, unspecified Category: Medical Qualifiers: Anemia type: unspecified type Qualified Code(s): D64.9 - Anemia, unspecified (2) Osteoporosis: Code(s): M81.0 - Age-related osteoporosis without current pathological fracture Category: Medical Qualifiers: Osteoporosis type: unspecified Presence of current pathological fracture: without current pathological fracture Qualified Code(s): M81.0 - Age-related osteoporosis without current pathological fracture (3) Fatigue: Code(s): R53.83 - Other fatigue Category: Medical Qualifiers: Fatigue type: unspecified Qualified Code(s): R53.83 - Other fatigue Plan Plan Patient was informed and verbally consented to the use of an ambient scribe for clinic note documentation during this visit. 1. Osteoporosis The patient is currently on alendronate therapy, which she takes weekly with a full glass of water, and reports no adverse effects. A referral to endocrinology was discussed to explore additional treatment options, although the current management is aimed at preserving bone density. 2. Anemia The patient is taking iron supplements to address anemia, but experiences constipation as a side effect, managed with Senokot. A repeat blood test was recommended to reassess anemia status and ensure it does not worsen. Fatigue-blood work are being reevaluated. The patient was also encourage to make sure she is adequately hydrated and rested. Reports that she is getting up every morning at 05:00. Her exhaustion is close to her about 20:00, which is not far off from the time that she should be feeling tired if getting up this early. Orders: Orders Complete Blood Count Auto Diff Today D64.9 - Anemia, unspecified, E66.3 - Overweight, M81.0 - Age-related osteoporosis without current pathological fracture, R53.83 - Other fatigue TSH reflex Free T4 Today D64.9 - Anemia, unspecified, E66.3 - Overweight, M81.0 - Age-related osteoporosis without current pathological fracture, R53.83 - Other fatigue UA CC w/rflx Micro + Cult Today D64.9 - Anemia, unspecified, E66.3 - Overweight, M81.0 - Age-related osteoporosis without current pathological fracture, R53.83 - Other fatigue Comprehensive [place]. Panel Fast Today D64.9 - Anemia, unspecified, E66.3 - Overweight, M81.0 - Age-related osteoporosis without current pathological fracture, R53.83 - Other fatigue CRP High Sensitivity Today D64.9 - Anemia, unspecified, E66.3 - Overweight, M81.0 - Age-related osteoporosis without current pathological fracture, R53.83 - Other fatigue Erythrocyte Sedimentation Rate Today D64.9 - Anemia, unspecified, E66.3 - Overweight, M81.0 - Age-related osteoporosis without current pathological fracture, R53.83 - Other fatigue Vitamin D 25-OH Total Today D64.9 - Anemia, unspecified, E66.3 - Overweight, M81.0 - Age-related osteoporosis without current pathological fracture, R53.83 - Other fatigue IRON PROFILE Today D64.9 - Anemia, unspecified, E66.3 - Overweight, M81.0 - Age-related osteoporosis without current pathological fracture, R53.83 - Other fatigue Lipid Panel Today D64.9 - Anemia, unspecified, E66.3 - Overweight, M81.0 - Age-related osteoporosis without current pathological fracture, R53.83 - Other fatigue Vitamin B12 and Folate Today D64.9 - Anemia, unspecified Referrals Endocrinology Referral M81.0 - Age-related osteoporosis without current pathological fracture
--- OUTSIDE RECORDS SUMMARY | 2025-01-31 08:51 | XMS_ITS | Clinical Summary ---
Author Organization [facility], Address [address] [place] [address] Phone Care Team Providers Care Third Rail Installer Name Role Phone Ant Garza MD Primary Care Provider [phone] Allergies No known active allergies Medications LORazepam (ATIVAN) 0.5 MG tablet Take 0.5 mg by mouth 1 (one) time each day Active acetaminophen (TYLENOL) 325 MG tablet Take 1,300 mg by mouth every 8 (eight) hours if needed for mild pain Active Multiple Vitamin (multivitamin) capsule Take 1 capsule by mouth 1 (one) time each day Active CHLORPHEN-PSEUD OEPH-METHSCOP PO Take by mouth Active Prempro 0.625-2.5 MG per tablet TAKE ONE TABLET BY MOUTH EVERY DAY 04/10/2020 Active FeroSul 325 (65 Fe) MG tablet TAKE ONE TABLET BY MOUTH TWICE A DAY (TAKE ON AN EMPTY STOMACH IF TOLERABLE, WITH AND ACIDIC DRINK OR A VITAMIN C. TABLET) 06/13/2020 Active oxyCODONE (Roxicodone) 5 MG immediate release tablet Take 1 tablet (5 mg total) by mouth every 4 (four) hours if needed for moderate pain for up to 5 doses 5 tablet 06/23/2020 Active Active Problems Problem Noted Date Diagnosed Date Malignant tumor of breast 06/18/2020 Overview (06/18/2020): RIGHT Iron deficiency anemia 07/29/2016 Allergic rhinitis 07/10/2012 Family history of cancer of colon 09/23/2009 Social History Tobacco Use Types Packs/Day Years Used Date Smoking Tobacco: Former Cigarettes Q uit: 1998 Alcohol Use Standard Drinks/Week Comments Not Currently 0 (1 standard drink = 0.6 oz pur e alcohol) Comments Unknown Sex and Gender Information Value Date Recorded Sex Assigned at Not on file Legal Sex Female 8:46 AM EST Gender Identity Not on file Sexual Orientation Not on file Last Filed Vital Signs Vital Sign Reading Time Taken Comments Blood Pressure 162/74 06/23/2020 8:35 AM EST Pulse 87 06/23/2020 8:35 AM EST Temperature 36.1 C (97 F) 06/23/2020 8:35 AM EST Respiratory Rate 16 06/23/2020 8:35 AM EST Oxygen Saturation 100% 06/23/2020 8:35 AM EST Inhaled Oxygen Concentration - - Weight 70.8 kg (156 lb) 06/23/2020 8:35 AM EST Height 160 cm (5' 3 ) 06/23/2020 8:35 AM EST Body Mass Index 27.63 06/23/2020 8:35 AM EST Plan of Treatment Health Maintenance Due Date Last Done Comments Breast Cancer Screening 1955 Pneumococcal Vaccine: 50+ Ye ars (1 of 2 - PCV) 1976 Colorectal Cancer Screening: Annual FOBT 2006 Colorectal Cancer Screening: Colonoscopy 2006 Colorectal Cancer Screening: Sigmoidoscopy 2006 Influenza Vaccine (#1) 2025 04/10/2010 Hepatitis B Vaccine Aged Out No longe r eligible based on patient's age to complete this topic Insurance [facility] Care Teams Third Rail Installer Relationship Specialty Start Date End Date Ant Garza MD [address] [place] [address] PCP - General Internal Medicine 06/18/20
== END 2025-01-31 09:29 | disposition home or self-care (01) ==
LOC: HO.HMCH 08:26
PROVIDERS: PCP Internal Medicine
DX: D64.9 Anemia, unspecified (principal); M81.0 Age-related osteoporosis without current pathological fracture; R53.83 Other fatigue

== ENCOUNTER 2025-02-01 09:23 | Emergency (ER) | payer BC, SELFPAY ==
[2025-02-01] VITALS (7 sets, daily range): BP systolic 113–157; BP diastolic 50–68; PULSE 69–75; RESP 14–16; TEMP 36.3–36.9; O2SAT 99–100; BMI 26.2
--- NOTE | 2025-02-01 | ECG_ITS ---
Test Reason : LOW HEMOGLOBIN/FATIGUE/DIZZINESS Blood Pressure : */* mmHG Vent. Rate : 74 BPM Atrial Rate : 74 BPM P-R Int : 154 ms QRS Dur : 74 ms QT Int : 392 ms P-R-T Axes : 58 9 21 degrees QTcB Int : 435 ms Sinus rhythm with Premature atrial complexes Septal infarct , age undetermined Abnormal ECG No previous ECGs available Referred By: Generic ED Physician Electronically Signed By: Richard Blakely
[2025-02-01 10:06] LABS: MANUAL DIFF FLAG NO
[2025-02-01 10:08] LABS: Hematocrit 25.3 % (37.0-47.0); Imm Gran Abs Auto 0.01 X10*3/uL (0.00-0.03); Imm Gran Pct Auto 0.2 % (0.0-0.4); Lymphocytes Absolute Auto 1.7 X10*3/uL (1.2-4.9); Mean Corpuscular HGB Conc 27.7 g/dl (31.0-35.0); Mean Corpuscular Hemoglobin 20.5 pg (27.0-33.0); Mean Corpuscular Volume 74.2 fL (80.0-98.0); NRBC Abs Auto 0.000 X10*3/uL (0.0-0.012); NRBC Pct Auto 0.0 /100WBC (0.0-0.2); Platelet Count 293 X10*3/uL (160-400); Red Blood Count 3.41 X10*6/uL (4.20-5.50); White Blood Count 6.1 X10*3/uL (4.8-10.8)
--- NOTE | 2025-02-01 10:15 | ED_ITS ---
HPI - General Adult General Chief complaint: Recheck/Abnormal Lab/Rx Stated complaint: abnormal labs sent in from provider office Time Seen by Provider: 02/01/25 09:45 Source: patient Mode of arrival: ambulatory Limitations: no limitations History of Present Illness ED Provider: ALAN Romero HPI narrative: This is a 69-year-old female history of anemia, fatigue, osteopenia, breast cancer status post mastectomy presenting to the emergency department with abnormal labs she was seen by her primary care provider's office yesterday on 01/31/2025 she had labs drawn and she was told to come in to be seen for low hemoglobin of 6.7. She reports she had 1 blood transfusion in the past due to anemia. She reports that she has been feeling very fatigued and with little energy to do anything over the last 3-4 weeks. She will intermittently get lightheaded and dizzy however not present at this time. She denies chest pain, shortness of breath, nausea, vomiting, abdominal pain, headache, vision changes, dizziness, weakness, fevers, chills, difficulty in urination or bowel habits Related Data Home Medications ?Medication ?Instructions ?Recorded ?Confirmed ferrous sulfate 325 mg (65 mg 325 mg PO BID 06/25/20 0 01/31/25 iron) tablet multivitamin 1 tab PO DAILY 06/25/2009/21 cyanocobalamin (vitamin B-12) 1,000 mcg PO DAILY 10/2301/31/25 1,000 mcg tablet Previous Rx's ?Medication ?Instructions ?Recorded alendronate 70 mg tablet 70 mg PO QWEEK 3 months #13 tabs 11/02/24 Allergies Allergy/AdvReac Type Severity Reaction Status Date / Time Seasonal Allergies Allergy Intermediate Sneezing Verified 02/01/25 09:27 Review of Systems 2 Review of Systems: Yes all other systems are reviewed and are negative PMFSH Past Medical History Attestation statement: The following information was validated with the patient. Source: old records reviewed and nursing notes reviewed Medical History Osteoporosis Overweight (BMI 25.0-29.9) Elevated blood pressure reading Breast cancer, right breast Surgical History History of colonoscopy History of bilateral mastectomy H/O breast implant History of section Family History Family History Other Family history non-contributory Social History Social History Housing: House Alcohol intake: former Patient Tobacco Use Status: Former Tobacco user Tobacco use type: Cigarette e-Cigarette/Vaping Use: Never Used Second Hand Smoke Exposure: Yes Advance Directives: No Advance Directives Information Provided: Yes service: No Current occupational status: employed 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 Oriented X3.? No acute distress.? Head: Normocephalic, atraumatic, no step-offs or deformities Eyes: Pupils equal, round and reactive to light.? ENT: Pharynx normal.? Neck: Normal inspection.? Neck supple.? CVS: Normal heart rate and rhythm.? Pulses normal.? Respiratory: No respiratory distress.? Breath sounds normal.? Abdomen: Soft and nontender.? Skin: Skin warm and dry.? Normal skin color.? Normal skin turgor.? Extremities: No lower extremity edema.? No calf ttp. 5/5 strength to bilateral upper and lower extremities Back: No midline tenderness, no C-spine tenderness, full range of motion, no CVA tenderness bilaterally Neuro: Oriented X 3.? No motor deficit.? No sensory deficit. CN 2-12 intact Rectal exam: Consent obtained, nurse Vilchis at the bedside as a film masker. No abnormalities noted no hemorrhoids, fissures, no bright red blood per rectum. OBS obtained. Vital Signs: Vital Signs - 24 hr 02/01/25 09:26 02/01/25 11:31 02/01/25 11:53 Temperature 97.4 F 98.3 F 98 F Pulse Rate 75 75 69 Respiratory Rate 16 15 15 Blood Pressure 157/68 H 127/51 L 132/56 L Pulse Oximetry 100 Oxygen Delivery Method Room Air 02/01/25 13:18 02/01/25 13:33 Temperature 98.4 F 98.1 F Pulse Rate 75 70 Respiratory Rate 14 15 Blood Pressure 119/50 L 113/59 L Pulse Oximetry 99 Oxygen Delivery Method Room Air BMI result Body Mass Index 26.2 Course Reevaluation(s) Reevaluation #1: CBC with a microcytic anemia hemoglobin 7, hematocrit 25.3 MCV 74.2. Ordered 1 unit PRBC. This is slightly improved from yesterday's labs. Chemistry unremarkable. OBS negative. I did consider obtaining a CT abdomen pelvis however no abdominal tenderness on exam. No rectal bleeding. Will give patient follow-up with GI and hopes she follows up with them. Will repeat CBC to ensure hemoglobin increasing. Time: 13:35 Reevaluation #2: Repeat CBC with a hemoglobin of 7.6 hematocrit 26.5 MCV 77.5. Patient feeling well. No signs of post transfusion reaction or reaction. Hemodynamically stable. Not complaining of pain. Feels better after the transfusion. Will have her follow up with PCP and GI. Educated patient on diagnosis and treatment plan, answered all question, patient verbalizes understanding. At this time patient will be discharged home, advised to return with new or worsening symptoms. Educated on worrisome signs and symptoms and when to return. At this time I feel comfortable discharge home. Time: 13:36 Medical Decision Making Medical Decision Making [facility] Narrative: 1018 69-year-old female presents with abnormal labs that were obtained in by her PCPs office yesterday. Reports 3-4 weeks of fatigue, lightheadedness. Physical exam unremarkable. Unremarkable rectal exam. History and physical exam concerning for likely microscopic blood in stool which could be culprit for anemia. No signs of hemorrhaging at this time. Will rule out other electrolyte abnormalities. Malignancy on the differential Plan labs, imaging, type and screen likely transfusion. I did obtain written and verbal consent for blood transfusion, patient verbalized understanding, she signed consent and was placed in her chart. Differential Diagnosis Differential Diagnoses: The differential diagnosis associated with the presentation includes (History and physical exam concerning for likely microscopic blood in stool which could be culprit for anemia. No signs of hemorrhaging at this time. Will rule out other electrolyte abnormalities. Malignancy on the differential) Admission/Observation Consideration of admission/observation: Escalation of care including admission/observation considered Lab Data [facility] Lab Attestation statement: I reviewed the patient's lab results. 02/01/25 13:30 02/01/25 09:58 Labs: Lab Results 02/01/25 02/01/2525 Range/Units 09:58 10:31 13:30 WBC 6.1 5.4 (4.8-10.8) X10*3/uL RBC 3.41 L 3.46 L (4.20-5.50) X10*6/uL Hgb 7.0 L* 7.6 L (12.0-16.0) g/dl Hct 25.3 L 26.8 L (37.0-47.0) % MCV 74.2 L 77.5 L (80.0-98.0) fL MCH 20.5 L 22.0 L (27.0-33.0) pg MCHC 27.7 L 28.4 L (31.0-35.0) g/dl RDW 20.9 H 21.1 H (11.0-16.0) % Plt Count 293 250 (160-400) X10*3/uL MPV 10.3 9.7 (9.4-12.3) fL Immature Gran % (Auto) 0.2 0.2 (0.0-0.4) % Neut % (Auto) 60.8 43.7 L (45-73) % Lymph % (Auto) 27.8 42.2 H (20-40) % Amelia % (Auto) 8.3 10.2 (2-11) % Eos % (Auto) 2.1 2.6 (0-4) % Baso % (Auto) 0.8 1.1 (0-2) % Lymph # (Auto) 1.7 2.3 (1.2-4.9) X10*3/uL Amelia # (Auto) 0.5 0.6 (0.1-1.2) X10*3/uL Eos # (Auto) 0.1 0.1 (0.0-0.4) X10*3/uL Baso # (Auto) 0.1 0.1 (0.0-0.2) X10*3/uL Abs Immat Gran (auto) 0.01 0.01 (0.00-0.03) X10*3/uL Absolute Neuts (auto) 3.7 2.4 (2.0-8.3) x10*3/uL Absolute Nucleated RBC 0.000 0.000 (0.0-0.012) X10*3/uL Nucleated RBC % (auto) 0.0 0.0 (0.0-0.2) /100WBC PT 10.8 L (10.9-12.4) SEC INR 0.9 (0.9-1.1) Sodium 142 (135-145) mmol/L Potassium 3.8 (3.3-5.1) mmol/L Chloride 108 (96-108) mmol/L Carbon Dioxide 25 (22-29) mmol/L Anion Gap 13 (12-20) BUN 12 (9-16) mg/dL Creatinine 0.67 (0.5-1.4) mg/dL Estim Creat Clear Calc 77.8 Estimated GFR > 60 Random Glucose 94 (60-115) mg/dL Calcium 9.2 (8.4-10.2) mg/dL Magnesium 2.3 (1.6-2.6) mg/dL Total Bilirubin 0.3 (0.0-1.0) mg/dL AST 23 (5-31) U/L ALT 19 (0-31) U/L Alkaline Phosphatase 44 (39-117) U/L Total Protein 7.4 (6.5-8.0) g/dL Albumin 4.5 (3.5-5.0) g/dL Stool Occult Blood NEGATIVE (NEGATIVE) Blood Type O Positive Antibody Screen NEGATIVE Crossmatch See Detail Independent Interpretation I performed an independent interpretation of an: CT Scan External Record Review External record reviewed: Inpatient record, Office record, Outpatient record, Prior outpatient labs, Prior outpatient radiology, Primary care record and Outside ED record Tests considered The following testing was considered but not selected: Considered CT abdomen and pelvis however no tenderness on palpation no blood in stool. Chronic Conditions Patient?s care impacted by: Other (See HPI) Critical Care Time Critical Care Time Critical Care Time: Yes Total Critical Care Time: 35 Attestation: I attest to this time spent taking care of the patient, obtaining history, physical, reviewing labs, imaging, treatment of patients condition +/- specialist/hospitalist consult +/- procedure Discharge Plan Discharge Clinical Impression: Anemia Qualifiers: Anemia type: unspecified type Qualified Code(s): D64.9 - Anemia, unspecified Patient Disposition: Home, Self-Care Instructions: Anemia (ED) Additional Instructions: Take your medications as prescribed. If you were prescribed antibiotics today, it is important that you take your medication to their entirety, do not skip any doses, do not finish them early. Follow-up with your primary care provider this week. Return to the emergency department with new or worsening symptoms. Such as fevers, chills, chest pain, shortness of breath, nausea, vomiting, dizziness, headache, vision changes, lethargy In case of emergency call 911 Please continue your ferrous sulfate. Follow-up with your primary care provider and GI within a week. Prescriptions: No Action alendronate 70 mg tablet 70 mg PO QWEEK 90 Days Qty: 13 2RF Rx Instructions: To be taken first thing in the morning on an empty stomach with a full glass of water; patient has to stay upright for at least the next 30 minutes and should not eat or drink anything else for 30 to 60 minutes after taking the medication ferrous sulfate 325 mg (65 mg iron) tablet 325 mg PO BID multivitamin Tablet 1 tab PO DAILY cyanocobalamin (vitamin B-12) 1,000 mcg tablet 1,000 mcg PO DAILY Referrals: Ant Garza MD [Primary Care Provider, Internal Medicine] [facility] [Provider Group, Gastroenterology] Stand Alone Forms: Work/School Release Print Language: Citizen Of [place]
--- OUTSIDE RECORDS SUMMARY | 2025-02-01 10:15 | XMS_ITS | Clinical Summary ---
Author Organization [facility], Address [address] [place] [address] Phone Care Team Providers Care Roll Grinder Operator Name Role Phone Ant Garza MD Primary Care Provider [phone]- [phone] Allergies No known active allergies Medications LORazepam [...] patient's age to complete this topic Insurance [facility] Care Teams Roll Grinder Operator Relationship Specialty Start Date End Date Ant Garza MD [address] [place] [address] PCP - General Internal Medicine 06/18/20
--- OUTSIDE RECORDS SUMMARY | 2025-02-01 10:15 | XMS_ITS | Encounter Summary ---
Author Organization [facility] Address [address] [place] [address] Care Team Providers Care Supervisor [employer] Name Role Phone Ivone Morley MD Primary Care Provider Unava ilable Encounter Details Date Type Department Care Team Description 06/24/2011 Transportation Inspector Report Medical Records [address] [place] [address] Jamie Engel MD Social History Tobacco Use Types Packs/Day Years Used Date Smoking Tobacco: Former Cigarettes 12 Q uit: 03/30/1997 Alcohol Use Standard Drinks/Week Comments Yes 0 (1 standard drink = 0.6 oz pur e alcohol) rare Sex Assigned at Date Recorded Not on file documented as of this encounter Plan of Treatment Not on file documented as of this encounter Visit Diagnoses Not on filedocumented in this encounter Care Teams Supervisor [employer] Relationship Specialty Start Date End Date Ivone Morley MD PCP - General Internal Medicine 04/09/11 documented as of this encounter
--- OUTSIDE RECORDS SUMMARY | 2025-02-01 10:15 | XMS_ITS | Encounter Summary ---
Author Organization [facility] Address [address] [place] [address] Care Team Providers Care Cannon Pinion Adjuster Name Role Phone Ivone Morley MD Primary Care Provider Unava ilable Encounter Details Date Type Department Care Team Description 12/06/2017 Transfer Records Medical Records [address] [place] [address] Abstract, Provider Social History Tobacco Use Types Packs/Day Years Used Date Smoking Tobacco: Former Cigarettes 12 Q uit: 03/30/1997 Smokeless Tobacco: Never Alcohol Use Standard Drinks/Week Comments Yes 0 (1 standard drink = 0.6 oz pur e alcohol) rare Sex Assigned at Date Recorded Not on file documented as of this encounter Plan of Treatment Not on file documented as of this encounter Visit Diagnoses Not on filedocumented in this encounter Care Teams Cannon Pinion Adjuster Relationship Specialty Start Date End Date Ivone Morley MD PCP - General Internal Medicine 04/09/11 documented as of this encounter
[2025-02-01 10:16] LABS: Hemoglobin 7.0 g/dl (12.0-16.0)
[2025-02-01 10:19] LABS: INTERNATIONAL NORM RATIO 0.9 (0.9-1.1); Prothrombin Time 10.8 SEC (10.9-12.4)
[2025-02-01 10:32] LABS: Alanine Aminotransferase 19 U/L (0-31); Albumin Level 4.5 g/dL (3.5-5.0); Alkaline Phosphatase 44 U/L (39-117); Anion Gap 13 (12-20); Aspartate Amino Transferase 23 U/L (5-31); Blood Urea Nitrogen 12 mg/dL (9-16); Calcium 9.2 mg/dL (8.4-10.2); Carbon Dioxide 25 mmol/L (22-29); Chloride 108 mmol/L (96-108); Creatinine Clr Calc Pharmacy 77.8; Estimated Glomerular Filt Rate > 60; Magnesium 2.3 mg/dL (1.6-2.6); Potassium 3.8 mmol/L (3.3-5.1); Sodium 142 mmol/L (135-145); Total Protein 7.4 g/dL (6.5-8.0)
[2025-02-01 10:41] LABS: OBS Int Ctl Valid YES; OBS1 NEGATIVE (NEGATIVE)
[2025-02-01 13:34] LABS: Hematocrit 26.8 % (37.0-47.0); Hemoglobin 7.6 g/dl (12.0-16.0); Imm Gran Abs Auto 0.01 X10*3/uL (0.00-0.03); Imm Gran Pct Auto 0.2 % (0.0-0.4); Lymphocytes Absolute Auto 2.3 X10*3/uL (1.2-4.9); MANUAL DIFF FLAG NO; Mean Corpuscular HGB Conc 28.4 g/dl (31.0-35.0); Mean Corpuscular Hemoglobin 22.0 pg (27.0-33.0); Mean Corpuscular Volume 77.5 fL (80.0-98.0); NRBC Abs Auto 0.000 X10*3/uL (0.0-0.012); NRBC Pct Auto 0.0 /100WBC (0.0-0.2); Platelet Count 250 X10*3/uL (160-400); Red Blood Count 3.46 X10*6/uL (4.20-5.50); White Blood Count 5.4 X10*3/uL (4.8-10.8)
== END 2025-02-01 13:50 | disposition home or self-care (01) ==
PROVIDERS: Physician Assistant; Emergency Provider Emergency Medicine; PCP Internal Medicine
DX: D64.9 Anemia, unspecified (principal); R42 Dizziness and giddiness; R53.83 Other fatigue; Z79.899 Other long term (current) drug therapy; Z51.81 Encounter for therapeutic drug level monitoring
CPT/HCPCS: 36415; 36430; 80053; 82272; 83735; 85025; 85610; 86850; 86900; 86901; 86923; 93005; 99284; 99285; P9016

== ENCOUNTER → 2025-02-01 10:12 | Outpatient (BNV) | payer BC, SELFPAY | PROVIDERS: Emergency Provider Emergency Medicine; PCP Internal Medicine; Visit Provider Internal Medicine Cardiovascular Disease | DX: I49.1 Atrial premature depolarization (principal) | CPT/HCPCS: 93010 ==

== ENCOUNTER 2025-02-08 07:28 | Outpatient (AMB) | payer BC, SELFPAY ==
--- OUTSIDE RECORDS SUMMARY | 2025-02-08 07:31 | XMS_ITS | Clinical Summary ---
Author Organization [facility], Address [address] [place] [address] Phone Care Team Providers Care Distribution Operation Supervisor Name Role Phone Ant Garza MD Primary Care Provider +1- [phone] Allergies No known active allergies Medications LORazepam [...] patient's age to complete this topic Insurance [facility] Care Teams Distribution Operation Supervisor Relationship Specialty Start Date End Date Ant Garza MD [address] [place] [address] PCP - General Internal Medicine 06/18/20
[2025-02-08 07:36] VITALS: BP 134/72; PULSE 74; O2SAT 98; BMI 26.9
--- NOTE | 2025-02-08 07:36 | A.OFFPC_ITS ---
Vital Signs 02/08/25 07:36 Height 5 ft 3 in Weight 152 lb BMI 26.9 BP 134/72 Blood Pressure Location Lt brachial Position Sitting Pulse 74 Pulse Source Pulse Oximeter Pulse Oximetry (%) 98 Oxygen Delivery Method Room Air Intake [place] [facility] [place] abnormal labs sent in from provider office Allergies Seasonal Allergies Allergy (Intermediate, Verified 02/08/25 07:36) Sneezing Tobacco use date assessed: 01/31/25 Fall risk assessment: No Falls in past year Last assessed Fall Risk: 02/08/25 Dental Screening Dental Screen Date: 01/31/25 HPI HPI Comments History of Present Illness Details 69 y/o Female patient who presents to [facility]. Pt was admitted [place] [facility] for evaluation and treatment of Anemia. Pt was found to have Low Hgb levels (6.7) on 01/31 during routine Lab work by PCP. She did receive Blood Transfusion in the ED and the Hgb Levels at the discharge was 7.6 Reports feeling Tired all the time and Lightheadedness. She is waiting for GI appointment - She does take her Iron Supp daily with Vitamin C. She does have Constipation from Iron Supplements. She does have h/o Breast CA - and sees Oncology every 6 months. Last Time she saw Hematology was back in 2020. 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 1. Little interest or pleasure in doing things: not at all 2. Feeling down, depressed, or hopeless: not at all 3. Trouble falling or staying asleep, or sleeping too much: several days 4. Feeling tired or having little energy: more than half the days 5. Poor appetite or overeating: not at all 6. Feeling bad about yourself - or that you are a failure or have let yourself or your family down: not at all 7. Trouble concentrating on things, such as reading the newspaper or watching television: not at all 8. Moving or speaking so slowly that other people could have noticed. Or the opposite - being so fidgety or restless that you have been moving around a lot more than usual: not at all 9. Thoughts that you would be better off or of hurting yourself in some way: not at all Total score: 3 Depression Screening Interpretation: Negative Depression Screening Done: Yes Source: Developed by Drs. Daljit Church, Helena Ji, Patel Hudson and colleagues, with an educational shelly from [employer] Thrive Questionnaire Date Thrive assessed: 01/31/25 I am a: Patient What is your living situation today?: I have a steady place to live Within the past 12 months, did the food you bought not last and you didn't have the money to get more?: Never true Within the past 12 months, did you worry whether your food would run out before you got money to buy more?: Never true Do you have trouble paying for medicines?: No Do you have trouble getting transportation to medical appointments?: No Do you have trouble paying your heating and electricity bill?: No Do you have trouble taking care of your child, family member or friend?: No Do you have trouble with day-to-day activities such as bathing, preparing meals, shopping, managing finances, etc.?: No Are you currently unemployed and looking for a job?: No Are you interested in more education?: No Please select the resources that you would like help with: None Currently or been in a relationship where the following occur: No concerns reported THRIVE Score: 0 AUDIT C Alcohol Use Questionnaire (AUDIT-C) 1. How often do you have a drink containing alcohol?: Never 3. How often do you have six or more drinks on one occasion?: Never Total Score: 0 AGUSTINA-7 AMB Questionnaire AGUSTINA-7 Date AGUSTINA - 7 assessed: 01/31/25 Source: Developed by Drs. Daljit Church, Helena Ji, Patel Hudson and colleagues, with an educational shelly from [employer] Review of Systems Const All systems reviewed & are unremarkable except as noted in HPI and below Physical exam (Primary Care) Vital Signs: Last Vital Signs Pulse 74 02/08/25 07:36 BP 134/72 02/08/25 07:36 Pulse Ox 98 02/08/25 07:36 Oxygen Delivery Method Room Air 02/08/25 07:36 BMI result Body Mass Index 26.9 Tobacco/Smoking Status: Tobacco use Status Tobacco use date assessed 01/31/25 02/08/25 07:40 Patient Tobacco Use Status Former Tobacco user 02/08/25 07:40 Tobacco use type Cigarette 02/08/25 07:40 e-Cigarette/Vaping Use Never Used 02/08/25 07:40 PHQ-9: PHQ-9 Score PHQ-9: Total score 3 02/08/25 07:40 Depression Screening Interpretation: Negative Thrive Assessment: Date of Thrive Assessment Date Thrive assessed 01/31/25 02/08/25 07:40 Currently or been in a relationship where the following occur: No concerns reported Const General: no acute distress Nutritional Appearance: well nourished Orientation/consciousness: patient oriented x3 Resp Effort & Inspection: normal respiratory effort Auscultation: clear to auscultation bilaterally Cardio Heart sounds: S1 normal heart sound present and S2 normal heart sound present Neuro General: patient oriented x3 Coding Level of Care Code Est Pt Level 4 (23328) Diagnoses Anemia, unspecified type D64.9 Anemia type: unspecified type Time Spent (min) 20 Assessment & Plan Assessment & Plan (1) Anemia: Code(s): D64.9 - Anemia, unspecified Category: Medical Qualifiers: Anemia type: unspecified type Qualified Code(s): D64.9 - Anemia, un specified Plan: Continue Taking Iron Supplements with Vitamin C Will repeat CBC in 4 weeks. Referral to GI was placed from the hospital - pending appointment. F/U with PCP. Orders: Orders Complete Blood Count Auto Diff 4 Weeks D64.9 - Anemia, unspecified Comprehensive Met. Panel 4 Weeks D64.9 - Anemia, unspecified
== END 2025-02-08 08:59 | disposition home or self-care (01) ==
LOC: HO.HMCH 07:29
PROVIDERS: PCP Internal Medicine; Visit Provider Nurse Practitioner Family
DX: D64.9 Anemia, unspecified (principal)

== ENCOUNTER 2025-02-15 07:54 | Outpatient (AMB) | payer BC, SELFPAY ==
--- OUTSIDE RECORDS SUMMARY | 2025-02-15 07:57 | XMS_ITS | Clinical Summary ---
Author Organization [facility], Address [address] [place] [address] Phone Care Team Providers Care Branch Lending Officer Name Role Phone Ant Garza MD Primary Care Provider +1- [phone] Allergies No known active allergies Medications LORazepam [...] age to complete this topic Insurance [facility] Care Teams Branch Lending Officer Relationship Specialty Start Date End Date Ant Garza MD [address] [place] [address] PCP - General Internal Medicine 06/18/20
--- NOTE | 2025-02-15 08:03 | MHC.OFFVIS ---
Vital Signs 02/15/25 08:04 Height 5 ft 2 in Weight 152 lb BMI 27.8 BP 137/62 Blood Pressure Location Lt brachial Position Sitting Pulse 73 Pulse Oximetry (%) 97 Oxygen Delivery Method Room Air Intake Visit Reasons: Anemia Intake Note: Patient new consult for Anemia Patient cc: heartburn, constipation due the Iron, dizziness/fatigue, light headaches, and always tired. Management Development Specialist Required: No Accompanied by: Self / Same As Patient Allergies Seasonal Allergies Allergy (Intermediate, Verified 02/08/25 07:36) Sneezing Medication List - Last Reconciled 02/15/25 by Linda Crawford CNP alendronate 70 mg PO QWEEK 3 months cyanocobalamin (vitamin B-12) 1,000 mcg PO DAILY ferrous sulfate 325 mg PO BID multivitamin 1 tab PO DAILY HPI HPI Anemia: Details: Patient is a 69-year-old female with PMH of overweight, osteoporosis, history of breast cancer s/p chemotherapy. Referred by PCP for further evaluation of anemia. Twila presents for evaluation of chronic iron deficiency anemia. She reports persistent fatigue despite ongoing oral iron supplementation. She experiences constipation secondary to high-dose iron, which is well controlled with Senokot. Bowel movements daily with occasional constipation; stool dark due to iron. No changes in bowel pattern or episodes of diarrhea. Heartburn occurs sporadically, triggered by dietary factors, and is managed with as-needed Tums. Appetite is stable. No odynophagia, dysphagia, or regurgitation. Describes chills but no recent fevers. Noteworthy history includes breast cancer (chemo completed 2021, currently in remission), osteoporosis, and iron deficiency anemia requiring prior transfusion when hemoglobin was 6.5. No history of GI bleeding. Workup includes negative colonoscopy (2020) except for diverticulosis and internal/external hemorrhoids, and upper endoscopy (2020) showing hiatal hernia, gastritis, and biopsy changes suspicious for celiac disease (not yet serologically evaluated). Most recent hemoglobin was 7.6 with planned interval labs. Ongoing evaluation with Oncology. No reported medication allergies. No recent hospitalizations except for transfusion. Denies new or worsening GI or systemic symptoms. No family history of GI malignancy. Patient denies: fever n/v, appetite changes, regurgitation,dysphasia, unintentional wt loss, ab pain or melena/hematochezia. Social hx: -denies ETOH use -denies recreational drug use - former smoker, cessation 25 years ago - family hx as below -denies significant cardiopulmonary history -tolerated anesthesia in the past without difficulty. [facility] Medical History (Updated 02/15/25 @ 10:58 by Linda Crawford CNP) Iron (Fe) deficiency anemia Constipation Osteoporosis Overweight (BMI 25.0-29.9) Elevated blood pressure reading Breast cancer, right breast Surgical History History of colonoscopy History of bilateral mastectomy H/O breast implant History of section Family History Other Family history non-contributory Social History Housing: House Alcohol intake: former Patient Tobacco Use Status: Former Tobacco user Tobacco use type: Cigarette e-Cigarette/Vaping Use: Never Used Second Hand Smoke Exposure: Yes service: No Current occupational status: employed 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[employer]); 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 Cognitive needs: No Hearing needs: No Vision needs: No Review of Systems Const Reports as per HPI ENT Reports as per HPI Card Reports as per HPI Resp Reports as per HPI GI Reports as per HPI Reports as per HPI Physical Exam Vital Signs: Last Vital Signs Pulse 73 02/15/25 08:04 BP 137/62 02/15/25 08:04 Pulse Ox 97 02/15/25 08:04 Oxygen Delivery Method Room Air 02/15/25 08:04 BMI result Body Mass Index 27.8 Const General: healthy appearing, no acute distress and well developed Nutritional Appearance: average body habitus Orientation/consciousness: patient oriented x3 HEENT Head: Yes normal to inspection, Yes normocephalic and Yes atraumatic Face and sinus: Yes normal facial exam Eyes General: appearance normal, both eyes and all related structures Neck Neck: Yes normal visual inspection Resp Effort & Inspection: normal respiratory effort, able to speak in complete sentences, no tracheal deviation and symmetric chest movement Auscultation: clear to auscultation bilaterally Cardio Jugular venous distension: no JVD Rate: regular rate Rhythm: regular rhythm Heart sounds: S1 normal heart sound present, S2 normal heart sound present, no gallops and no murmurs GI Inspection: Yes normal to inspection and No distended Palpation (GI): Soft to palpation, not firm, nontender and No hepatosplenomegaly present Auscultation: normal bowel sounds Neuro General: patient oriented x3 Gait exam (Neuro): Normal gait present Psych Appearance: grossly normal Mental Status: mental status grossly normal Speech and movement: Normal speech and movement present Affect: normal affect Attitude: cooperative Thought process: Normal thought process present Thought content: Normal thought content present Insight: Good insight present (Psych) Judgement: Good judgement present (Psych) Assessment & Plan Assessment & Plan (1) Anemia: Comment: 06/27/2020 colonoscopy ([facility]) complete with adequate prep-normal colon mucosa to TI, diverticulosis, internal and external hemorrhoids. Recommendations for repeat colonoscopy 10 years. 06/27/2020 EGD- normal esophagus, gastritis, medium size hiatal hernia, increased intraepithelial lymphocytes to duodenum (see scanned document) Code(s): D64.9 - Anemia, unspecified Category: Medical Qualifiers: Anemia type: unspecified type Qualified Code(s): D64.9 - Anemia, unspecified Plan: Chronic iron deficiency anemia with negative GI workup to date; colonoscopy normal 2020 except for diverticulosis/hemorrhoids; upper endoscopy revealed hiatal hernia, gastritis, and possible celiac disease. History of breast cancer with chemotherapy, potential for marrow involvement. Current oncology follow-up. Additional Testing: -Celiac serology: TTG-IgA (and total IgA if not done) -Repeat colonoscopy + upper endoscopy (both ordered for interval evaluation given new dip in hemoglobin, history of prior abnormal upper endoscopy findings, and clinical suspicion) -Routine surveillance labs (CBC) Medication Management: -Continue oral iron supplementation as tolerated -Continue Senokot for constipation; direct care counselor on maintaining bowel regimen -No changes to osteoporosis treatment or other ongoing medications Lifestyle Recommendations: -Emphasize dietary iron and fiber-rich foods as tolerated -Maintain hydration; continue to manage constipation -Continue ice chewing if helpful, though direct care counselor re: dental effects -Continue current approach to heartburn (diet modification, as-needed Tums) Follow-Up: -GI follow-up scheduled after oncology appt -Immediate follow-up/portal message if new symptoms develop (abdominal pain, melena, hematochezia, vomiting, significant change in bowel pattern, unexplained weight loss) -Coordination with oncology ongoing (next oncology f/u ) (2) Constipation: Code(s): K59.00 - Constipation, unspecified Category: Medical Qualifiers: Constipation type: drug induced constipation Qualified Code(s): K59.03 - Drug induced constipation Plan: Constipation directly related to oral iron supplementation, effectively managed with Senokot. Additional Testing: None Medication Management: Continue current regimen Lifestyle Recommendations: Maintain fiber intake, hydration, and regular bowel regimen Follow-Up: Address if constipation worsens or becomes unmanageable Plan Follow-up 3 months after oncology appointment or sooner as needed Time: I spent a total of 35 minutes on the date of encounter which includes: Preparing to see the patient (reviewed previous documentation, test results and medical history) Performing a medically appropriate exam and/or evaluation Ordering medications, tests, and procedures Documenting clinical information in the health record Orders: Orders Transglutaminase IgA Today K59.00 - Constipation, unspecified Referrals GI Procedure Notification D64.9 - Anemia, unspecified Coding Level of Care Code New Pt New Pt Level 3 (30607) Patient Type New Diagnoses Anemia, unspecified type D64.9 Anemia type: unspecified type Drug-induced constipation K59.03 Constipation type: drug induced constipation
[2025-02-15 08:04] VITALS: BP 137/62; PULSE 73; O2SAT 97; BMI 27.8
== END 2025-02-15 08:46 | disposition home or self-care (01) ==
LOC: HO.HGI 07:55
PROVIDERS: PCP Internal Medicine; Visit Provider Nurse Practitioner Family
DX: D64.9 Anemia, unspecified (principal); K59.03 Drug induced constipation
CPT/HCPCS: 99203

== ENCOUNTER 2025-03-05 09:47 | Outpatient (REF) | payer BC, SELFPAY ==
[2025-03-05 10:03] LABS: MANUAL DIFF FLAG NO
[2025-03-05 10:35] LABS: Hematocrit 28.3 % (37.0-47.0); Hemoglobin 8.1 g/dl (12.0-16.0); Imm Gran Abs Auto 0.02 X10*3/uL (0.00-0.03); Imm Gran Pct Auto 0.4 % (0.0-0.4); Lymphocytes Absolute Auto 1.8 X10*3/uL (1.2-4.9); Mean Corpuscular HGB Conc 28.6 g/dl (31.0-35.0); Mean Corpuscular Hemoglobin 22.8 pg (27.0-33.0); Mean Corpuscular Volume 79.5 fL (80.0-98.0); NRBC Abs Auto 0.000 X10*3/uL (0.0-0.012); NRBC Pct Auto 0.0 /100WBC (0.0-0.2); Platelet Count 281 X10*3/uL (160-400); Red Blood Count 3.56 X10*6/uL (4.20-5.50); White Blood Count 5.6 X10*3/uL (4.8-10.8)
[2025-03-05 11:09] LABS: Alanine Aminotransferase 15 U/L (0-31); Albumin Level 4.2 g/dL (3.5-5.0); Alkaline Phosphatase 41 U/L (39-117); Anion Gap 12 (12-20); Aspartate Amino Transferase 23 U/L (5-31); Blood Urea Nitrogen 13 mg/dL (9-16); Calcium 9.2 mg/dL (8.4-10.2); Carbon Dioxide 27 mmol/L (22-29); Chloride 110 mmol/L (96-108); Estimated Glomerular Filt Rate > 60; Potassium 4.5 mmol/L (3.3-5.1); Sodium 144 mmol/L (135-145); Total Protein 7.2 g/dL (6.5-8.0)
--- OUTSIDE RECORDS SUMMARY | 2025-03-05 11:16 | XMS_ITS | Clinical Summary ---
Author Organization [facility], Address [address] [place] [address] Phone Care Team Providers Care Inspector Rubber Stamp Die Name Role Phone Ant Garza MD Primary Care Provider [phone] Allergies No known active allergies Medications LORazepam [...] patient's age to complete this topic Insurance [facility] Care Teams Inspector Rubber Stamp Die Relationship Specialty Start Date End Date Ant Garza MD [address] [place] [address] PCP - General Internal Medicine 06/18/20
== END 2025-03-05 09:48 | disposition home or self-care (01) ==
LOC: HO.LAB 09:47
PROVIDERS: Absent Provider Nurse Practitioner Family; PCP Internal Medicine; Visit Provider Nurse Practitioner Family
DX: D64.9 Anemia, unspecified (principal)
CPT/HCPCS: 36415; 80053; 85025

== ENCOUNTER 2025-03-06 08:04 | Outpatient (AMB) | payer BC, SELFPAY ==
--- NOTE | 2025-03-06 08:09 | MHC.OFFVIS ---
Vital Signs 03/06/25 08:12 Height 5 ft 3.21 in Weight 152 lb 8.958 oz BMI 26.8 BP 142/64 H Blood Pressure Location Lt radial Position Sitting Pulse 83 Pulse Source Pulse Oximeter Intake Visit Reasons: Osteoporosis Intake Note: New patient internally referred by PCP for Osteoporosis. Manufacturer Representative Required: No Accompanied by: Self / Same As Patient Allergies Seasonal Allergies Allergy (Intermediate, Verified 03/06/25 08:13) Sneezing Medication List - Last Reconciled 03/06/25 by Daljit Sotelo MD alendronate 70 mg PO QWEEK 3 months cyanocobalamin (vitamin B-12) 1,000 mcg PO DAILY ferrous sulfate 325 mg PO BID multivitamin 1 tab PO DAILY HPI Comments Details: The patient is a 69-year-old female presenting with osteoporosis management. She was diagnosed with osteoporosis approximately two years ago following a bone density test, although she was not informed of the results until recently. She has been on alendronate since May 2024 and tolerates it well. The patient has a history of a wrist fracture that occurred approximately 25 years ago when she slipped and fell while on vacation. She has not experienced any other fractures since then. The patient has a history of breast cancer, for which she underwent chemotherapy but not radiation therapy. She has lost both breasts due to the cancer. The patient reports taking Viactiv chews for calcium supplementation, although she is unsure of the exact dosage. She also takes vitamin D in the form of gummies, with her levels being on the high side of normal. She does not engage in weight-bearing exercises and has lost two inches in height. The patient denies any history of kidney stones, hip fractures, or spine fractures. 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 - Alendronate: Started May 2024, taken once weekly, well tolerated - Viactiv chews: For calcium supplementation, dosage unknown - Vitamin D gummies: Taken daily, dosage unknown, levels high normal The patient enjoys consuming dairy products such as cottage cheese, Solomon Islander cheese, mozzarella cheese, and Parmesan cheese. She also likes shrimp. She is advised to ensure a total calcium intake of 1200 mg from diet and supplements. First diagnosed in recently . Received treatment in the past with alendronate , from 05/2024 to present . Tolerated treatment well without complication. history of pathologic wrist fracture in age 40s slipped and fell or ONJ. Has several servings of dietary calcium per day in the form of cottage cheese , yogurt , shrimp . Takes Calcium supplement ? mg daily in divided doses. Takes ? IU of Vitamin D daily. Denies ever using PPI, anticoagulant, antiepileptic or glucocorticoid medication. 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 UTD on dental cleanings and sees dentist every 6 months. No planned upcoming dental work or extractions.Needs crown on Mar 26 No tobacco use or ETOH use Had chemo for breast cancer in past DXA dated : 06/08/2023 EXAMINATION: BONE DENSITOMETRY CLINICAL INDICATION: Asymptomatic menopausal state. COMPARISON: This is the patient's baseline examination. TECHNIQUE: Using a OpenChime DXA System (software version: 13.1) manufactured by [employer], dual-energy x-ray absorptiometry was performed of the lumbar spine and left hip. The images are of good technical quality. Summary results are attached. FINDINGS: LEFT FEMUR, NECK: BMD 0.723 g/cm2, Z-score -1.0, T-score -2.3, osteopenia. LEFT FEMUR, TOTAL: BMD 0.746 g/cm2, Z-score -1.1, T-score -2.1, osteopenia. AP SPINE L1-L4: BMD 0.858 g/cm2, Z-score -1.4, T-score -2.7, osteoporosis. IDENTIFIED RISK FACTORS: Early menopause, secondary osteoporosis, height loss, history of fracture (adult). HISTORY OF FRACTURE: Wrist. MEDICATIONS: Calcium supplements or multivitamin, vitamin D. MM/XR DEXA axial skeleton IMPRESSION: 1. DIAGNOSIS: Severe osteoporosis based on the lowest T-score value of -2.7 in the lumbar spine and history of fracture applying World Health Organization criteria. Labs: [facility] Medical History (Updated 02/15/25 @ 10:58 by Linda Crawford CNP) Iron (Fe) deficiency anemia Constipation Osteoporosis Overweight (BMI 25.0-29.9) Elevated blood pressure reading Breast cancer, right breast Surgical History History of colonoscopy History of bilateral mastectomy H/O breast implant History of section Family History Other Family history non-contributory Social History Housing: House Alcohol intake: former Patient Tobacco Use Status: Former Tobacco user Tobacco use type: Cigarette e-Cigarette/Vaping Use: Never Used Second Hand Smoke Exposure: Yes service: No Current occupational status: employed 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[employer]); 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 Cognitive needs: No Hearing needs: No Vision needs: No Physical Exam Vital Signs: Last Vital Signs Pulse 83 03/06/25 08:12 BP 142/64 H 03/06/25 08:12 BMI result Body Mass Index 26.8 Assessment & Plan Assessment & Plan (1) Osteoporosis: Code(s): M81.0 - Age-related osteoporosis without current pathological fracture Category: Medical Qualifiers: Osteoporosis type: unspecified Presence of current pathological fracture: without current pathological fracture Qualified Code(s): M81.0 - Age-related osteoporosis without current pathological fracture Plan: This is a 69-year-old white female with a history of breast cancer and osteoporosis currently being treated alendronate . She had a partial secondary workup. Plan is to complete the secondary workup by checking 24 hour urine for calcium, creatinine, phosphorus level, urine immunofixation. We will continue to assure 1200 mg of calcium and continued vitamin-D repletion. We will also check urine NTX and repeat bone density in 05/2025. 1. Osteoporosis The patient is on alendronate and tolerates it well. A follow-up bone density test is planned for May to evaluate treatment efficacy. Calcium intake should be 1200 mg daily, and vitamin D intake may be reduced to one gummy daily. Weight-bearing exercises are recommended. I discussed with the patient the management of osteoporosis, emphasizing the importance of maintaining adequate calcium and vitamin D intake. We reviewed the need for a follow-up bone density test in May to assess the effectiveness of alendronate therapy. I advised on the benefits of weight-bearing exercises for bone health. We also discussed the patient's history of breast cancer and the current stability of her condition. - Continue taking alendronate as prescribed. - Ensure daily calcium intake of 1200 mg from diet and supplements. - Consider reducing vitamin D intake to one gummy daily. - Engage in weight-bearing exercises to improve bone health. - Schedule a follow-up bone density test in May. - Monitor vitamin D levels and adjust intake as needed. The patient had an opportunity to ask questions regarding treatment plan. The patient expressed understanding and agreement with the above treatment plan. Patient was informed and verbally consented to the use of an ambient scribe for clinic note documentation during this visit. Orders: Orders Collagen Crosslinks NTX Today M81.0 - Age-related osteoporosis without current pathological fracture XR DEXA axial skeleton Today M81.0 - Age-related osteoporosis without current pathological fracture Creatinine, 24 Hr Group Today M81.0 - Age-related osteoporosis without current pathological fracture Calcium, 24 Hr Ur Today M81.0 - Age-related osteoporosis without current pathological fracture Phosphorus Today M81.0 - Age-related osteoporosis without current pathological fracture Immunofixation, Random Urine Today M81.0 - Age-related osteoporosis without current pathological fracture Coding Level of Care Code New Pt Level 4 (18298) Diagnoses Osteoporosis without current pathological fracture, unspecified osteoporosis type M81.0 Osteoporosis type: unspecified Presence of current pathological fracture: without current pathological fracture
[2025-03-06 08:12] VITALS: BP 142/64; PULSE 83; BMI 26.8
== END 2025-03-06 08:56 | disposition home or self-care (01) ==
LOC: HO.ENCR 08:05
PROVIDERS: PCP Internal Medicine; Visit Provider Internal Medicine Endocrinology, Diabetes & Metabolism
DX: M81.0 Age-related osteoporosis without current pathological fracture (principal)
CPT/HCPCS: 99204

== ENCOUNTER 2025-03-19 09:42 | Day surgery (SDC) | payer BC, SELFPAY ==
[2025-03-15 13:32] VITALS: BMI 27.8
--- NOTE | 2025-03-18 09:09 | HO.ANESPROP2 ---
Documented by User: Juana Prescott NP 03/18/25 09:17 HPI - Anesthesia Eval Consult details Narrative: 69yo F for Upper Endoscopy and Colonoscopy PMFSH Active Problems Active Problems: All Active Problems Fatigue (Acute) Annual physical exam (Acute) Anemia (Acute) Osteopenia (Acute) Iron (Fe) deficiency anemia (Acute) Constipation (Acute) Osteoporosis (Acute) Overweight (BMI 25.0-29.9) (Acute) Elevated blood pressure reading (Acute) Breast cancer, right breast (Acute) Past Medical History Medical History (Updated 02/15/25 @ 10:58 by Linda Crawford CNP) Iron (Fe) deficiency anemia Constipation Osteoporosis Overweight (BMI 25.0-29.9) Elevated blood pressure reading Breast cancer, right breast Family History Family History Other Family history non-contributory Surgical History Surgical History (Updated 03/15/25 @ 13:33 by Tamela Ward RN) History of esophagogastroduodenoscopy (EGD) History of colonoscopy History of bilateral mastectomy H/O breast implant History of section Social History Social History Housing: House Alcohol intake: former Patient Tobacco Use Status: Former Tobacco user Tobacco use type: Cigarette e-Cigarette/Vaping Use: Never Used Second Hand Smoke Exposure: Yes Are you DNR?: No Advance Directives: No Advance Directives Information Provided: Yes service: No Current occupational status: employed 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[employer]); 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946 kg Pertinent Lab Results Pertinent Lab Results: Laboratory Tests 03/05/25 10:02 WBC 5.6 Hgb 8.1 L Hct 28.3 L Plt Count 281 Sodium 144 Potassium 4.5 Chloride 110 H Carbon Dioxide 27 BUN 13 Creatinine 0.70 Narrative Narrative: EKG 01/2025 Vent. Rate : 74 BPM Atrial Rate : 74 BPM P-R Int : 154 ms QRS Dur : 74 ms QT Int : 392 ms P-R-T Axes : 58 9 21 degrees QTcB Int : 435 ms Sinus rhythm with Premature atrial complexes Septal infarct , age undetermined Abnormal ECG No previous ECGs available Assessment and Plan Assessment Anesthesia Assessment: Chart Reviewed Documented by User: Uli Odonnell MD 03/19/25 10:16 [facility] Past Medical History Medical History (Updated 02/15/25 @ 10:58 by Linda Crawford CNP) Iron (Fe) deficiency anemia Constipation Osteoporosis Overweight (BMI 25.0-29.9) Elevated blood pressure reading Breast cancer, right breast Family History Family History Other Family history non-contributory Family history of problems with anesthesia: No Surgical History Surgical History (Updated 03/15/25 @ 13:33 by Tamela Ward RN) History of esophagogastroduodenoscopy (EGD) History of colonoscopy History of bilateral mastectomy H/O breast implant History of section History of Problems with Anesthesia: No Social History Social History Housing: House Alcohol intake: former Patient Tobacco Use Status: Former Tobacco user Tobacco use type: Cigarette e-Cigarette/Vaping Use: Never Used Second Hand Smoke Exposure: Yes Are you DNR?: No Advance Directives: No Advance Directives Information Provided: Yes service: No Current occupational status: employed 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[employer]); 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 Cognitive needs: No Hearing needs: No Vision needs: No Meds Allergies Allergy/AdvReac Type Severity Reaction Status Date / Time Seasonal Allergies Allergy Intermediate Sneezing Verified 03/06/25 08:13 Home Medications ?Medication ?Instructions ?Recorded ?Confirmed ?Last Taken ?Type ferrous sulfate 325 mg (65 mg 325 mg PO BID 06/25/20 03/15/25 Unknown History iron) tablet multivitamin 1 tab PO DAILY 06/25/20 03/15/25 Unknown History cyanocobalamin (vitamin B-12) 1,000 mcg PO DAILY 10/23/20 03/15/25 Unknown History 1,000 mcg tablet Exam Airway Mallampati Class: II TM Dist: <=3cm Neck ROM: Full Loose/Missing/Broken Teeth: No Heart: ok Lungs: ok Assessment and Plan Assessment Anesthesia Assessment: Anesthesia Plan Discussed Final Anesthetic Review Family History of Problems with Anesthesia: No History of Problems with Anesthesia: No NPO: Yes ASA Class: II Final Preanesthetic Review: No Changes in Pt Med Stat, Meds/Allgs Chart Reviewed, Consent Obtained/Reviewed and Anes Risks/Benef Reviewed Patient Risk: Low Procedure Risk: Intermediate Anesthetic Plan Anesthetic Plan: MAC: and Agree w/ Assess. and Plan Disposition: Standard PACU
[2025-03-19 09:59] VITALS: BP 147/67; PULSE 95; RESP 18; TEMP 36.4; O2SAT 97; BMI 27.4
[2025-03-19] MEDS: Lactated Ringers 1,000 ML 100 ML IVCONT (10:07)
--- NOTE | 2025-03-19 10:50 | MHC.SHP ---
Pre-Procedural Eval Section A - 24 Hr Update-Section A only Date of Service: 03/19/25 Section B - Complete if H&P > 30 days Chief Complaint: Anemia, unspecified Relevant Family History (Specify if Yes): No Relevant Social History: None Present Medications: see Short Stay Collaborative assessment Medical History: Significant History (Iron (Fe) deficiency anemia Constipation Osteoporosis Overweight (BMI 25.0-29.9) Elevated blood pressure reading Breast cancer, right breast) History of Previous Operations: Relevant previous surgery/procedure and date(s) (History of esophagogastroduodenoscopy (EGD) History of colonoscopy History of bilateral mastectomy H/O breast implant History of section) Allergies: Allergies Allergy/AdvReac Type Severity Reaction Status Date / Time Seasonal Allergies Allergy Intermediate Sneezing Verified 03/06/25 08:13 Review of Systems Sugical H&P ROS: Negative: Constitution, Cardiovascular, Respiratory, Neurological, Psychiatric, Hem-Onc, Allergic/Immunologic, Gastrointestinal, Genitourinary, Musculoskeletal, Integumentary, Endocrine and Eyes/Ears/Nose/Throat Exam Surgical H&P Exam: Normal: HEENT, Normal: Heart, Normal: Lungs, Normal: Extremities, Normal: Abdomen, Normal: Skin and Normal: Neurological Plan Diagnosis/Plan: Unchanged I have reviewed the history and physical and performed a pertinent physical examination on my patient. No changes have occurred unless specified. Time Spent With Patient Time: Total time managing care of this patient today ____ minutes.
--- NOTE | 2025-03-19 11:20 | P.OPN-COLO_ITS ---
Colonoscopy Operative Note Operative Note Date of Service: 03/19/25 Narrative: Operative Information Procedure Description: EGD, Colonoscopy Indication: Anemia Anesthesia: MAC FLEXIBLE TRANSORAL UPPER GASTROINTESTINAL ENDOSCOPY AND COLONOSCOPY PROCEDURE NOTE UPPER ENDOSCOPY Consent: Indications for the procedure and potential complications of bleeding, perforation, reaction to medications and missed diagnosis were discussed with the patient and informed consent was obtained. Instrument: Olympus GIF H 190 J mid size upper endoscope Monitoring: Vital signs and clinical assessment, continuous EKG monitoring, Pulse oximetry, Carbon Dioxide monitoring and blood pressure monitoring were done throughout the procedure. Procedure: The patient was placed in the left lateral decubitis position and pre-procedure medications were administered and a bite block was placed. The endoscope was inserted into the mouth and advanced under direct vision to the third part of duodenum. A careful inspection was made as the upper endoscope was withdrawn including a retroflexed examination of the proximal stomach; Findings and interventions are described below. Findings: Larynx:normal Esophagus: GE junction at 34 cm, diaphragm hiatus at 36 cm, consistent with 2 cm sliding hiatal hernia, bx taken from GEJ Stomach: Patchy granularity, and atrophy with erythema martha at antrum. Biopsies were obtained. Grade 2 flap valve on retroflexed examination of the cardia. Duodenum: Normal bulb and descending duodenum, bx taken Intervention: Biopsies as noted above, COLONOSCOPY Instrument: Olympus variable stiffness pediatric scope 190L Colonoscopy Monitoring: Vital signs and clinical assessment, continuous EKG monitoring, Pulse oximetry, Carbon Dioxide monitoring and blood pressure monitoring were done throughout the procedure. Colon withdrawal time was 10 minutes. Procedure: The patient was placed in the left lateral decubitis position and pre-procedure medications were administered. After a digital rectal examination of the ano-rectum, the video colonoscope was inserted into the rectum and advanced through the colon to the cecum/TI. The colonoscope was slowly withdrawn in a retrograde panoramic fashion and the colon mucosa was carefully examined including a retroflexed view of the rectum. Findings and interventions are described below. Procedure Difficulty:moderate Findings: melanosis coli noted Terminal Ileum-normal, bx taken right sided colo bx taken Cecum:normal Ascending Colon: normal Transverse Colon -normal Descending Colon:normal Sigmoid Colon: mild diverticulosis Rectum: Retroflexion with small internal hemorrhoids, grade I Anorectum - normal Colon preparation: [place] Bowel Preparation Scale Right colon; 2 Transverse colon: 3 Left colon; 3 (0 = Unprepared colon segment with mucosa not seen due to solid stool that cannot be cleared. 1 = Portion of mucosa of the colon segment seen, but other areas of the colon segment not well seen due to staining, residual stool and/or opaque liquid. 2 = Minor amount of residual staining, small fragments of stool and/or opaque liquid, but mucosa of colon segment seen well. 3 = Entire mucosa of colon segment seen well with no residual staining, small fragments of stool or opaque liquid) Impression and Post Procedure Diagnosis: Endoscopy Findings: sliding hiatal hernia gastritis Colonoscopy Findings: diverticulosis melanosis coli internal hemorrhoids Plan: Await Pathology results Repeat Colonoscopy in 10 years or earlier if clinically indicated High fiber diet leaflet avoid straining at stool, epsom salts and sitz bath, anusol supps or cream capsule endoscopy if bx are negative consider checking for h pylori if bx neg Above findings were reviewed with the patient and relevant handouts were provided if indicated.
[2025-03-19 11:25] VITALS: BP 119/52; PULSE 84; RESP 16; TEMP 36.3; O2SAT 84
[2025-03-19 11:41] VITALS: BP 112/45; PULSE 75; RESP 17; TEMP 36.3; O2SAT 100
== END 2025-03-19 12:00 | disposition home or self-care (01) ==
PROVIDERS: PCP Internal Medicine; Visit Provider Internal Medicine Gastroenterology
PROC: (CPT 45380; principal; 2025-03-19 11:00)
DX: D64.9 Anemia, unspecified (principal); K59.03 Drug induced constipation; K29.70 Gastritis, unspecified, without bleeding; K44.9 Diaphragmatic hernia without obstruction or gangrene; K63.89 Other specified diseases of intestine; K57.30 Diverticulosis of large intestine without perforation or abscess without bleeding; K64.0 First degree hemorrhoids
CPT/HCPCS: 45380; 43239; 88305; 88313; 88341; 88342; J2003; J2704

== ENCOUNTER → 2025-03-19 09:42 | Outpatient (BNV) | payer BC, SELFPAY | PROVIDERS: PCP Internal Medicine; Visit Provider Internal Medicine Gastroenterology | DX: D64.9 Anemia, unspecified (principal); K22.2 Esophageal obstruction; K29.70 Gastritis, unspecified, without bleeding; K63.89 Other specified diseases of intestine; K57.30 Diverticulosis of large intestine without perforation or abscess without bleeding; K64.0 First degree hemorrhoids | CPT/HCPCS: 43239; 45380 ==

== ENCOUNTER 2025-03-26 11:14 | Outpatient (AMB) | payer BC, SELFPAY ==
--- NOTE | 2025-03-26 11:22 | MHC.OFFVIS ---
Vital Signs 03/26/25 11:25 Height 5 ft 2 in Weight 150 lb BMI 27.4 BP 126/60 Blood Pressure Location Lt brachial Position Sitting Pulse 77 Pulse Oximetry (%) 97 Oxygen Delivery Method Room Air Intake Visit Reasons: s/p EGD and [facility] Intake Note: Patient follow up for Anemia, EGD/Colonoscopy and lab results. Patient cc: fatigue/dizziness, always tired and constipation on and off. Tin Flopper Required: No Accompanied by: Self / Same As Patient Allergies Seasonal Allergies Allergy (Intermediate, Verified 03/26/25 11:22) Sneezing Medication List - Last Reconciled 03/26/25 by Linda Crawford CNP alendronate 70 mg PO QWEEK 3 months cyanocobalamin (vitamin B-12) 1,000 mcg PO DAILY ferrous sulfate 325 mg PO BID multivitamin 1 tab PO DAILY omeprazole 20 mg PO DAILY sennosides (senna) 8.6 mg PO BID HPI HPI s/p EGD and [facility]: Details: Patient is a 69-year-old female with PMH of overweight, osteoporosis, history of breast cancer s/p chemotherapy. FU after EGD/colonoscopy (performed 01-17-2025) for anemia eval?rule out GI source. Pt reports stable GI sxs since last FU. Constipation controlled with OTC senna; if skipped, constipation recurs, improved with resumption or increased dose. No abd pain, GI bleed, melena, hematochezia, or significant heartburn. Occasional heartburn with acidic/tomato-based foods, well managed with PRN Tums. Denies tobacco or EtOH use. No hospitalizations except prior ER visit for anemia (transfusion x1). No GI flares. Compliant with previous dietary and hydration advice; has not trialed non-stimulant laxatives. No new sxs reviewed. [facility] Medical History (Updated 03/26/25 @ 12:14 by Linda Crawford CNP) Diverticulosis Gastritis Iron (Fe) deficiency anemia Constipation Osteoporosis Overweight (BMI 25.0-29.9) Elevated blood pressure reading Breast cancer, right breast Surgical History History of esophagogastroduodenoscopy (EGD) History of colonoscopy History of bilateral mastectomy H/O breast implant History of section Family History Other Family history non-contributory Social History Housing: House Alcohol intake: former Patient Tobacco Use Status: Former Tobacco user Tobacco use type: Cigarette e-Cigarette/Vaping Use: Never Used Second Hand Smoke Exposure: Yes service: No Current occupational status: employed 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[employer]); 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 Cognitive needs: No Hearing needs: No Vision needs: No Review of Systems Const Reports as per HPI ENT Reports as per HPI Card Reports as per HPI Resp Reports as per HPI GI Reports as per HPI Reports as per HPI Physical Exam Vital Signs: Last Vital Signs Pulse 77 03/26/25 11:25 BP 126/60 03/26/25 11:25 Oxygen Delivery Method Room Air 03/26/25 11:25 BMI result Body Mass Index 27.4 Const General: healthy appearing, no acute distress and well developed Nutritional Appearance: average body habitus Orientation/consciousness: patient oriented x3 HEENT Head: Yes normal to inspection, Yes normocephalic and Yes atraumatic Face and sinus: Yes normal facial exam Eyes General: appearance normal, both eyes and all related structures Neck Neck: Yes normal visual inspection Resp Effort & Inspection: normal respiratory effort, able to speak in complete sentences, no tracheal deviation and symmetric chest movement Cardio Jugular venous distension: no JVD Neuro General: patient oriented x3 Gait exam (Neuro): Normal gait present Psych Appearance: grossly normal Mental Status: mental status grossly normal Speech and movement: Normal speech and movement present Affect: normal affect Attitude: cooperative Thought process: Normal thought process present Thought content: Normal thought content present Insight: Good insight present (Psych) Judgement: Good judgement present (Psych) Results Reviewed Results Reviewed: Operative Note D Laboratory Tests 03/05/25 10:02 WBC 5.6 RBC 3.56 L Hgb 8.1 L Hct 28.3 L MCV 79.5 L MCH 22.8 L MCHC 28.6 L RDW 20.4 H Plt Count 281 MPV 9.8 Sodium 144 Potassium 4.5 Chloride 110 H Carbon Dioxide 27 Anion Gap 12 BUN 13 Creatinine 0.70 Estim Creat Clear Calc Not Reportable Estimated GFR > 60 Random Glucose 102 Calcium 9.2 Total Bilirubin 0.3 AST 23 ALT 15 Alkaline Phosphatase 41 Total Protein 7.2 Albumin 4.2 ate of Service: 03/19/25 Narrative: Operative Information Procedure Description: EGD, Colonoscopy Indication: Anemia Procedure: The patient was placed in the left lateral decubitis position and pre-procedure medications were administered and a bite block was placed. The endoscope was inserted into the mouth and advanced under direct vision to the third part of duodenum. A careful inspection was made as the upper endoscope was withdrawn including a retroflexed examination of the proximal stomach; Findings and interventions are described below. Findings: Larynx:normal Esophagus: GE junction at 34 cm, diaphragm hiatus at 36 cm, consistent with 2 cm sliding hiatal hernia, bx taken from GEJ Stomach: Patchy granularity, and atrophy with erythema martha at antrum. Biopsies were obtained. Grade 2 flap valve on retroflexed examination of the cardia. Duodenum: Normal bulb and descending duodenum, bx taken Intervention: Biopsies as noted above, COLONOSCOPY Procedure: The patient was placed in the left lateral decubitis position and pre-procedure medications were administered. After a digital rectal examination of the ano-rectum, the video colonoscope was inserted into the rectum and advanced through the colon to the cecum/TI. The colonoscope was slowly withdrawn in a retrograde panoramic fashion and the colon mucosa was carefully examined including a retroflexed view of the rectum. Findings and interventions are described below. Procedure Difficulty:moderate Findings: melanosis coli noted Terminal Ileum-normal, bx taken right sided colo bx taken Cecum:normal Ascending Colon: normal Transverse Colon -normal Descending Colon:normal Sigmoid Colon: mild diverticulosis Rectum: Retroflexion with small internal hemorrhoids, grade I Anorectum - normal Colon preparation: [place] Bowel Preparation Scale Right colon; 2 Transverse colon: 3 Left colon; 3 Impression and Post Procedure Diagnosis: Endoscopy Findings: sliding hiatal hernia gastritis Colonoscopy Findings: diverticulosis melanosis coli internal hemorrhoids Plan: Await Pathology results Repeat Colonoscopy in 10 years or earlier if clinically indicated High fiber diet leaflet avoid straining at stool, epsom salts and sitz bath, anusol supps or cream capsule endoscopy if bx are negative consider checking for h pylori if bx neg Above findings were reviewed with the patient and relevant handouts were provided if indicated. PATHOLOGY: Collected: 03/19/25 Location: .[facility] Received: 03/19/25 Diagnosis A. Duodenum, biopsy: Duodenal mucosa with preserved villi and no specific change; no evidence of amyloid. B. Gastric biopsy: Gastric antral mucosa with reactive changes and minimal chronic inactive gastritis and rare goblet cells suspicious for intestinal metaplasia; negative for H. pylori and dysplasia; no evidence of amyloid. C. Gastric body, biopsy: Atrophic gastritis with gland atrophy, pyloric-type glands, and intestinal metaplasia (complete); negative for H. pylori and dysplasia; no evidence of amyloid (see comment). D. Gastric fundus, biopsy: Gastric fundic mucosa with atrophic gastritis, focal pyloric metaplasia and intestinal metaplasia (complete and focal incomplete); negative for H. pylori and dysplasia; no evidence of amyloid (see comment). E. Gastroesophageal junction, biopsy: Squamocolumnar mucosa with minimal chronic inflammation; negative for intestinal metaplasia and dysplasia. F. Terminal ileum, biopsy: Ileal mucosa with no specific change; no evidence of amyloid. G. Colon, right, biopsy: Colonic mucosa with many pigmented lamina propria macrophages consistent with melanosis coli, otherwise no specific change; no evidence of amyloid. Comment: C and D: Appearances raise the possibility of autoimmune gastritis and clinical correlation is necessary. AB/PAS stain pending on B and gastrin stain pending on C; addendum to follow Clinical History Pre-Op Dx: Anemia Post-Op Dx: Gastritis, hiatal hernia, melanosis coli, diverticulosis Assessment & Plan Assessment & Plan (1) Iron (Fe) deficiency anemia: Comment: -03/19/25 colonoscopy -melanosis coli, mild diverticulosis (Sigmoid), small internal hemorrhoids, grade I. Recommendations for repeat in 10 years (2034) -06/27/2020 colonoscopy ([facility]) complete with adequate prep-normal colon mucosa to TI, diverticulosis, internal and external hemorrhoids. Recommendations for repeat colonoscopy 10 years. -03/19/25 EGD -2 cm sliding hiatal hernia, atrophic gastritis w/ complete and focal incomplete metaplasia. Repeat in 3 years (2027) -06/27/2020 EGD- normal esophagus, gastritis, medium size hiatal hernia, increased intraepithelial lymphocytes to duodenum (see scanned document) Code(s): D50.9 - Iron deficiency anemia, unspecified Category: Medical Qualifiers: Iron deficiency anemia type: unspecified iron deficiency Qualified Code(s): D50.9 - Iron deficiency anemia, unspecified Plan: Stable, Hgb improved after transfusion (01/2025) and oral iron therapy. GI source not yet found; no overt bleed. Negative EGD/colonoscopy for source; small bowel not yet assessed. Additional Testing: - Capsule endoscopy ordered to r/o small bowel bleeding source. - Referral to hematology for alternative causes if GI source excluded. Medications: Continue iron supp as previously. Lifestyle: Maintain fiber/water intake, avoid constipation to prevent diverticulosis complications. Referrals: Hematology, capsule endoscopy scheduling. F/U: 3 months, sooner if new/worsening sxs or test results prompt. (2) Diverticulosis: Comment: 03/19/25 colonoscopy -melanosis coli, mild diverticulosis ( Sigmoid), small internal hemorrhoids, grade I. Recommendations for repeat in 10 years (2034) Code(s): K57.90 - Diverticulosis of intestine, part unspecified, without perforation or abscess without bleeding Category: Medical Plan: Stable, asx. No acute issues. Additional Testing: None. Medications: None specific. Lifestyle: Maintain bowel regularity, avoid constipation. Referrals: None. F/U: Repeat colonoscopy in 10 yrs or sooner if sxs. (3) Gastritis: Comment: 03/19/25 EGD -2 cm sliding hiatal hernia, atrophic gastritis w/ complete and focal incomplete metaplasia. Repeat in 3 years (2027) Code(s): K29.70 - Gastritis, unspecified, without bleeding Category: Medical Qualifiers: Gastritis type: atrophic Gastritis bleeding: without bleeding Qualified Code(s): K29.40 - Chronic atrophic gastritis without bleeding Plan: EGD shows moderate/severe chronic gastritis with metaplasia; no active sxs but potential for progression;only intermittent heartburn with triggers (managed PRN). Additional Testing: None at this time; repeat EGD rec in 3 yrs per guidelines. Medications: - Omeprazole 20 mg PO QD x8 wks (new); 90-day supply for taper/wean after 8 wks. - Plan to taper: QOD dosing for 1 wk, then space further if tolerated. - Continue PRN Tums for breakthrough sxs. Lifestyle: Continue avoiding known triggers (acidic foods, caffeine); maintain current diet/hydration; wt mgmt as able. Referrals: None at present. F/U: As above. (4) Constipation: Code(s): K59.00 - Constipation, unspecified Category: Medical Qualifiers: Constipation type: drug induced constipation Qualified Code(s): K59.03 - Drug induced constipation Plan: Well controlled on OTC senna; occasional need for increased dose. Avoiding constipation critical for diverticulosis and pt comfort; concern for stimulant laxative dependency. Additional Testing: None required. Medications: - Continue senna (up to 4 tabs BID PRN). - Add Miralax PRN (martha. on days increased laxative support needed)?rx provided, trial on days when senna alone insufficient. Lifestyle: Continue high fiber, hydration; pt education provided to minimize chronic stimulant use. Referrals: None needed. F/U: Ongoing, reassess at next visit. Plan Follow-up 3 months or sooner as needed Time: I spent a total of 30 minutes on the date of encounter which includes: Preparing to see the patient (reviewed previous documentation, test results and medical history) Performing a medically appropriate exam and/or evaluation Ordering medications, tests, and procedures Documenting clinical information in the health record Orders: Referrals Hematology & Oncology Referral D50.9 - Iron deficiency anemia, unspecified, D64.9 - Anemia, unspecified Medications: New polyethylene glycol 3350 (Miralax) Take 17G (one cap full) daily with 8oz of water 17 grams PO DAILY 510 grams 2RF constipation 30 days sennosides (senna) two capsules nightly, starting 3 days prior to colonoscopy 17.2 mg (2 x 8.6 mg) PO BEDTIME 180 caps 1RF 90 days omeprazole Take one tablet daily X 8 weeks. Best taken on an empty, 30 minutes before eating. 20 mg PO DAILY 90 caps 0RF omeprazole Take one tablet daily. Best taken on an empty, 30 minutes before eating. 20 mg PO DAILY 90 caps 1RF Coding Level of Care Code Established Pt Est Pt Level 3 (35795) Patient Type Established Diagnoses Iron deficiency anemia, unspecified iron deficiency anemia type D50.9 Iron deficiency anemia type: unspecified iron deficiency Diverticulosis K57.90 Atrophic gastritis without hemorrhage K29.40 Gastritis type: atrophic Gastritis bleeding: without bleeding Drug-induced constipation K59.03 Constipation type: drug induced constipation
[2025-03-26 11:25] VITALS: BP 126/60; PULSE 77; O2SAT 97; BMI 27.4
--- OUTSIDE RECORDS SUMMARY | 2025-03-26 14:30 | XMS_ITS | Clinical Summary ---
Author Organization [facility], Address [address] [place] [address] Phone Care Team Providers Care Knife Edger Name Role Phone Ant Garza MD Primary Care Provider [phone] Allergies No known active allergies Medications LORazepam [...] patient's age to complete this topic Insurance [facility] Care Teams Knife Edger Relationship Specialty Start Date End Date Ant Garza MD [address] [place] [address] PCP - General Internal Medicine 06/18/20
== END 2025-03-26 12:02 | disposition home or self-care (01) ==
LOC: HO.HGI 11:14
PROVIDERS: PCP Internal Medicine; Visit Provider Nurse Practitioner Family
DX: D50.9 Iron deficiency anemia, unspecified (principal); K57.90 Diverticulosis of intestine, part unspecified, without perforation or abscess without bleeding; K29.40 Chronic atrophic gastritis without bleeding; K59.03 Drug induced constipation
CPT/HCPCS: 99213